=== PATIENT | female | born 1990 | race Caucasian/White ===

== ENCOUNTER 2018-03-23 17:07 | Emergency (ER) | payer OTHER ==
[2018-03-23] MEDS ORDERED: SODIUM CHLORIDE 0.9% 1,000 ML IV STA (17:34)
--- NOTE | 2018-03-23 17:36 | ED ---
Arrhythmia/Palpitations HPI - General Chief Complaint: Arrhythmia/Palpitations Stated Complaint: Weak/ dizzy /sob Time Seen by Provider: 03/23/18 17:34 Source: patient, RN notes reviewed, old records reviewed Mode of arrival: ambulatory Limitations: no limitations - History of Present Illness Initial Comments: This is a 19-year-old female the ER for evaluation of rapid heart rate. Patient feels like she recently had significantly heavy menstrual cycle with significant bleeding and has lightheadedness and dizziness with position changes. Patient denies any other significant complaints no headache chest pain shortness of breath or abdominal pain. MD Complaint: rapid heart beat, palpitations -: days(s) Context: occurred during exertion Associated Symptoms: near-syncope - Related Data Home Medications Medication Instructions Recorded Confirmed Ascorbic Acid [Vitamin C] 1,000 mg PO DAILY 03/23/18 03/23/18 Ferrous Sulfate [Feosol] 325 mg PO DAILY 03/23/18 03/23/18 Allergies Allergy/AdvReac Type Severity Reaction Status Date / Time Latex, Natural Rubber Allergy Rash/Hives Verified 03/23/18 17:47 Penicillins Allergy Rash/Hives Verified 03/23/18 17:47 Review of Systems ROS Statement: Those systems with pertinent positive or pertinent negative responses have been documented in the HPI. ROS Other: All systems not noted in ROS Statement are negative. Past Medical History Past Medical History: Hyperlipidemia Additional Past Medical History / Comment(s): family hx. colon cancer, intermittent rectal bleeding. PT STATES JUST GETTING OVER A "COLD"-SHE WILL NOTIFY DR Rica ROMERO'S OFFICE. History of Any Multi-Drug Resistant Organisms: None Reported Past Surgical History: Adenoidectomy, Cholecystectomy, Tonsillectomy Additional Past Surgical History / Comment(s): birthmark removed from chest Past Anesthesia/Blood Transfusion Reactions: No Reported Reaction Additional Past Anesthesia/Blood Transfusion Reaction / Comment(s): STATES SHE WOKE UP DURING 1 SURGERY. Past Psychological History: No Psychological Hx Reported Smoking Status: Never smoker Past Alcohol Use History: Occasional Past Drug Use History: None Reported - Past Family History Mother Family Medical History: No Reported History General Exam Limitations: no limitations General appearance: alert, in no apparent distress Head exam: Present: atraumatic, normocephalic, normal inspection Eye exam: Present: normal appearance, PERRL, EOMI. Absent: scleral icterus, conjunctival injection, periorbital swelling ENT exam: Present: normal exam, mucous membranes moist Neck exam: Present: normal inspection. Absent: tenderness, meningismus, lymphadenopathy Respiratory exam: Present: normal lung sounds bilaterally. Absent: respiratory distress, wheezes, rales, rhonchi, stridor Cardiovascular Exam: Present: normal rhythm, tachycardia, normal heart sounds. Absent: systolic murmur, diastolic murmur, rubs, gallop, clicks GI/Abdominal exam: Present: soft, normal bowel sounds. Absent: distended, tenderness, guarding, rebound, rigid Extremities exam: Present: normal inspection, full ROM, normal capillary refill. Absent: tenderness, pedal edema, joint swelling, calf tenderness Back exam: Present: normal inspection Neurological exam: Present: alert, oriented X3, CN II-XII intact Psychiatric exam: Present: normal affect, normal mood Skin exam: Present: warm, dry, intact, normal color. Absent: rash Course Vital Signs 03/23/18 03/23/18 03/23/18 17:27 18:11 21:25 Temperature 97.5 F L 98.9 F Pulse Rate 115 H 105 H Pulse Rate [ 104 H Registered Associate ] Respiratory 18 18 Rate Blood Pressure 175/99 142/70 O2 Sat by Pulse 100 Oximetry 03/23/18 03/23/18 03/23/18 21:35 22:05 23:09 Temperature Pulse Rate 102 H 110 H 103 H Pulse Rate [ Registered Associate ] Respiratory 17 17 17 Rate Blood Pressure 125/69 123/66 99/58 O2 Sat by Pulse 100 99 99 Oximetry - Reevaluation(s) Reevaluation #1: Medical record is reviewed Does not want stay in the hospital further, results and diagnosis is explained Medical Decision Making - Medical Decision Making 19 female the ER for evaluation she presents today for palpitations, patient has normal thyroid studies normal x-rays no drugs. Patient started so remains tachycardic currently but she remains without significant symptoms. Does feel better with some hydration and transfusion of blood. Patient denies any other significant drug or alcohol use. No chest - Lab Data Result diagrams: 03/23/18 18:30 03/23/18 18:30 Lab Results 03/23/18 03/23/18 03/23/18 Range/Units 18:30 18:30 18:30 WBC 16.5 H (3.8-10.6) k/uL RBC 2.62 L (3.80-5.40) m/uL Hgb 7.5 L (11.4-16.0) gm/dL Hct 22.5 L (34.0-46.0) % MCV 86.1 (80.0-100.0) fL MCH 28.7 (25.0-35.0) pg MCHC 33.3 (31.0-37.0) g/dL RDW 16.4 H (11.5-15.5) % Plt Count 365 (150-450) k/uL Neutrophils % 72 % Lymphocytes % 20 % Monocytes % 4 % Eosinophils % 3 % Basophils % 0 % Neutrophils # 11.9 H (1.3-7.7) k/uL Lymphocytes # 3.3 (1.0-4.8) k/uL Monocytes # 0.6 (0-1.0) k/uL Eosinophils # 0.4 (0-0.7) k/uL Basophils # 0.1 (0-0.2) k/uL Anisocytosis Slight PT (9.0-12.0) sec INR (<1.2) APTT (22.0-30.0) sec Sodium 138 (137-145) mmol/L Potassium 4.4 (3.5-5.1) mmol/L Chloride 104 (98-107) mmol/L Carbon Dioxide 27 (22-30) mmol/L Anion Gap 7 mmol/L BUN 12 (7-17) mg/dL Creatinine 0.83 (0.52-1.04) mg/dL Est GFR (CKD-EPI)AfAm >90 (>60 ml/min/1.73 sqM) Est GFR (CKD-EPI)NonAf >90 (>60 ml/min/1.73 sqM) Glucose 105 H (74-99) mg/dL Calcium 9.3 (8.4-10.2) mg/dL Magnesium 1.9 (1.6-2.3) mg/dL Total Bilirubin 0.5 (0.2-1.3) mg/dL AST 23 (14-36) U/L ALT 22 (9-52) U/L Alkaline Phosphatase 68 (38-126) U/L Total Creatine Kinase 27 L (30-135) U/L CK-MB (CK-2) <0.2 (0.0-2.4) ng/mL CK-MB (CK-2) Rel Index Troponin I <0.012 (0.000-0.034) ng/mL Total Protein 6.4 (6.3-8.2) g/dL Albumin 3.5 (3.5-5.0) g/dL Blood Type Blood Type Confirm Blood Type Recheck Antibody Screen Crossmatch Spec Expiration Date 03/23/18 03/23/18 03/23/18 Range/Units 18:30 18:30 20:07 WBC (3.8-10.6) k/uL RBC (3.80-5.40) m/uL Hgb (11.4-16.0) gm/dL Hct (34.0-46.0) % MCV (80.0-100.0) fL MCH (25.0-35.0) pg MCHC (31.0-37.0) g/dL RDW (11.5-15.5) % Plt Count (150-450) k/uL Neutrophils % % Lymphocytes % % Monocytes % % Eosinophils % % Basophils % % Neutrophils # (1.3-7.7) k/uL Lymphocytes # (1.0-4.8) k/uL Monocytes # (0-1.0) k/uL Eosinophils # (0-0.7) k/uL Basophils # (0-0.2) k/uL Anisocytosis PT 9.9 (9.0-12.0) sec INR 1.0 (<1.2) APTT 23.0 (22.0-30.0) sec Sodium (137-145) mmol/L Potassium (3.5-5.1) mmol/L Chloride (98-107) mmol/L Carbon Dioxide (22-30) mmol/L Anion Gap mmol/L BUN (7-17) mg/dL Creatinine (0.52-1.04) mg/dL Est GFR (CKD-EPI)AfAm (>60 ml/min/1.73 sqM) Est GFR (CKD-EPI)NonAf (>60 ml/min/1.73 sqM) Glucose (74-99) mg/dL Calcium (8.4-10.2) mg/dL Magnesium (1.6-2.3) mg/dL Total Bilirubin (0.2-1.3) mg/dL AST (14-36) U/L ALT (9-52) U/L Alkaline Phosphatase (38-126) U/L Total Creatine Kinase (30-135) U/L CK-MB (CK-2) (0.0-2.4) ng/mL CK-MB (CK-2) Rel Index Troponin I (0.000-0.034) ng/mL Total Protein (6.3-8.2) g/dL Albumin (3.5-5.0) g/dL Blood Type A Positive Blood Type Confirm A Positive Blood Type Recheck CABO Indicated Antibody Screen NEGATIVE Crossmatch See Detail Spec Expiration Date 03/26/20182 Disposition Clinical Impression: Anemia, Menorrhagia, Near syncope Disposition: HOME SELF-CARE Condition: Good Instructions: Iron Deficiency Anemia (ED), Anemia (ED) Is patient prescribed a controlled substance at d/c from ED?: No Referrals: Gray Pemberton MD [Primary Care Provider] - 1-2 days
[2018-03-23 18:49] LABS: Anisocytosis Slight; Basophils # (A) 0.1 k/uL (0-0.2); Basophils % (A) 0 %; Eosinophils # (A) 0.4 k/uL (0-0.7); Eosinophils % (A) 3 %; HCT 22.5 % (34.0-46.0); HGB 7.5 gm/dL (11.4-16.0); Lymphocytes # (A) 3.3 k/uL (1.0-4.8); Lymphocytes % (A) 20 %; MCH 28.7 pg (25.0-35.0); MCHC 33.3 g/dL (31.0-37.0); MCV 86.1 fL (80.0-100.0); Mean Platelet Volume 6.7; Monocytes # (A) 0.6 k/uL (0-1.0); Monocytes % (A) 4 %; Neutrophils # (A) 11.9 k/uL (1.3-7.7); Neutrophils % (A) 72 %; Platelet Count 365 k/uL (150-450); RBC 2.62 m/uL (3.80-5.40); RDW 16.4 % (11.5-15.5); WBC 16.5 k/uL (3.8-10.6)
[2018-03-23 18:53] LABS: Prothrombin Time 9.9 sec (9.0-12.0)
[2018-03-23 18:58] LABS: Creatine Kinase 27 U/L (30-135)
[2018-03-23 19:00] LABS: ALT 22 U/L (9-52); AST 23 U/L (14-36); Albumin 3.5 g/dL (3.5-5.0); Alkaline Phosphatase 68 U/L (38-126); Anion Gap 7 mmol/L; Blood Urea Nitrogen 12 mg/dL (7-17); Calcium 9.3 mg/dL (8.4-10.2); Carbon Dioxide 27 mmol/L (22-30); Chloride 104 mmol/L (98-107); Glucose 105 mg/dL (74-99); Magnesium 1.9 mg/dL (1.6-2.3); Potassium 4.4 mmol/L (3.5-5.1); Sodium 138 mmol/L (137-145); Total Bilirubin 0.5 mg/dL (0.2-1.3); Total Protein 6.4 g/dL (6.3-8.2)
[2018-03-23 19:11] LABS: Creatine Kinase MB <0.2 ng/mL (0.0-2.4); Troponin I <0.012 ng/mL (0.000-0.034)
[2018-03-23] MEDS ORDERED: LISINOPRIL 10 MG TAB PO STA (19:15)
[2018-03-23 21:27] VITALS: TEMP 98.9
[2018-03-23 22:18] VITALS: RESP 17
[2018-03-23 23:10] VITALS: BP 99/58; PULSE 103
== END 2018-03-23 23:23 | disposition home or self-care (01) ==
LOC: EC 17:07
DX: D64.9 Anemia, unspecified (principal); N92.0 Excessive and frequent menstruation with regular cycle; Z88.0 Allergy status to penicillin; Z91.040 Latex allergy status; Z79.899 Other long term (current) drug therapy
CPT/HCPCS: 99285; 96360; 36415; 86900; 86901; 80053; 82550; 82553; 83735; 84484; 85025; 85610; 85730; 86850; 86920; P9016

== ENCOUNTER 2022-05-21 09:22 | Emergency (ER) | payer OTHER ==
[2022-05-21 09:35] VITALS: TEMP 98
--- NOTE | 2022-05-21 10:10 | ED ---
General Adult HPI - General Chief complaint: Vaginal Bleeding Stated complaint: 8-9 weeks preg, Vaginal Bleeding Time Seen by Provider: 05/21/22 09:40 Source: patient, RN notes reviewed Mode of arrival: ambulatory Limitations: no limitations - History of Present Illness Initial comments: 31-year-old female presents emergency Department chief complaint of vaginal bleeding early . Patient states that she was not sure if she was she states she's been spotting for a while but had a little increasing bleeding this morning. She states that she is scheduled for lab and ultrasound at [facility] on . Patient states that she took multiple tests at home which were positive. Patient is A0 has not sc heduled [employer] appointment. She has no lower abdominal pain. Patient does have a history of anemia. - Related Data Home Medications Medication Instructions Recorded Confirmed Ascorbic Acid [Vitamin C] 1,000 mg PO DAILY 03/23/18 03/23/18 Ferrous Sulfate [Feosol] 325 mg PO DAILY 03/23/18 03/23/18 Allergies Allergy/AdvReac Type Severity Reaction Status Date / Time Latex, Natural Rubber Allergy Rash/Hives Verified 05/21/22 09:34 Penicillins Allergy Rash/Hives Verified 05/21/22 09:34 Review of Systems ROS Statement: Those systems with pertinent positive or pertinent negative responses have been documented in the HPI. ROS Other: All systems not noted in ROS Statement are negative. Past Medical History Past Medical History: Hyperlipidemia Additional Past Medical History / Comment(s): family hx. colon cancer, intermittent rectal bleeding. PT STATES JUST GETTING OVER A "COLD"-SHE WILL NOTIFY DR Rica ROMERO'S OFFICE. History of Any Multi-Drug Resistant Organisms: None Reported Past Surgical History: Adenoidectomy, Cholecystectomy, Tonsillectomy Additional Past Surgical History / Comment(s): birthmark removed from chest Past Anesthesia/Blood Transfusion Reactions: No Reported Reaction Additional Past Anesthesia/Blood Transfusion Reaction / Comment(s): STATES SHE WOKE UP DURING 1 SURGERY. Past Psychological History: No Psychological Hx Reported Smoking Status: Never smoker Past Alcohol Use History: Occasional Past Drug Use History: None Reported - Past Family History Mother Family Medical History: No Reported History General Exam Limitations: no limitations General appearance: alert, in no apparent distress Head exam: Present: atraumatic, normocephalic, normal inspection Eye exam: Present: normal appearance, PERRL, EOMI. Absent: scleral icterus, conjunctival injection, periorbital swelling Neck exam: Present: normal inspection, full ROM. Absent: tenderness, meningismus, lymphadenopathy Respiratory exam: Present: normal lung sounds bilaterally. Absent: respiratory distress, wheezes, rales, rhonchi, stridor Cardiovascular Exam: Present: regular rate, normal rhythm, normal heart sounds. Absent: systolic murmur, diastolic murmur, rubs, gallop, clicks GI/Abdominal exam: Present: soft, normal bowel sounds. Absent: distended, tenderness, guarding, rebound, rigid Course Vital Signs 05/21/22 09:31 Temperature 98 F Pulse Rate 101 H Respiratory 20 Rate Blood Pressure 137/95 O2 Sat by Pulse 98 Oximetry Medical Decision Making - Medical Decision Making Was pt. sent in by a medical professional or institution? @ -non Did you speak to anyone other than the patient for history? @ no Did you review nursing and triage notes? @ -agree and reviewed Were old charts reviewed? @ -no Differential Diagnosis? @ -Miscarriage, , menorrhagia, dysmenorrhea, ovarian cysts, this list is not meant to be all inclusive EKG interpreted by me (3pts min.)? @ -no X-rays interpreted by me (1pt min.)? @ -no CT interpreted by me (1pt min.)? @ -no U/S interpreted by me (1pt. min.)? @ -Ultrasound shows 9 week intrauterine with subchorionic hemorrhage as interpreted by me What testing was considered but not performed? (CT, X-rays, U/S, labs)? Why? @ no What meds were considered but not given? Why? @ -no Did you discuss the management of the patient with other professionals? @ -no Did you reconcile home meds? @ -no Was smoking cessation discussed for >3mins.? @ -non Was critical care preformed (if so, how long)? @ no Were there social determinants of health that impacted care today? How? (Homelessness, low income, unemployed, alcoholism, drug addiction, t ransportation, low edu. Level, literacy, decrease access to med. care, [facility], rehab)? @ -no Was there de-escalation of care discussed even if they declined? (Discuss DNR or withdrawal of care, Hospice)? @ -no What co-morbidities impacted this encounter? (DM, HTN, Smoking, COPD, CAD, Cancer, CVA, Hep., AIDS, mental health diagnosis, sleep apnea, morbid obesity)? @ -no Was patient admitted / discharged? @ -discharged Undiagnosed new problem with uncertain prognosis? @ -no Drug Therapy requiring intensive monitoring for toxicity (Heparin, Nitro, Insulin, Cardizem)? @ -no Were any procedures done? @ -no Diagnosis/symptom? @ - Acute, or Chronic, or Acute on Chronic? @ -acute Uncomplicated (without systemic symptoms) or Complicated (systemic symptoms)? @ -Uncomplicated Side effects of treatment? @ -no Exacerbation, Progression, or Severe Exacerbation] @ -no Poses a threat to life or bodily function? @ -no Diagnosis/symptom? @ -Subchorionic hemorrhage Acute, or Chronic, or Acute on Chronic? @ -acute Uncomplicated (without systemic symptoms) or Complicated (systemic symptoms)? @ -Uncomplicated Side effects of treatment? @ -none Exacerbation, Progression, or Severe Exacerbation] @ -non Poses a threat to life or bodily function? @ no - Lab Data Result diagrams: 05/21/22 09:48 Lab Results 05/21/22 05/21/22 05/21/22 Range/Units 09:48 09:48 09:48 WBC 14.8 H (3.8-10.6) k/uL RBC 5.20 (3.80-5.40) m/uL Hgb 14.9 (11.4-16.0) gm/dL Hct 43.5 (34.0-46.0) % MCV 83.8 (80.0-100.0) fL MCH 28.6 (25.0-35.0) pg MCHC 34.2 (31.0-37.0) g/dL RDW 14.0 (11.5-15.5) % Plt Count 264 (150-450) k/uL MPV 8.1 Neutrophils % 85 % Lymphocytes % 10 % Monocytes % 3 % Eosinophils % 0 % Basophils % 0 % Neutrophils # 12.6 H (1.3-7.7) k/uL Lymphocytes # 1.5 (1.0-4.8) k/uL Monocytes # 0.5 (0-1.0) k/uL Eosinophils # 0.1 (0-0.7) k/uL Basophils # 0.1 (0-0.2) k/uL HCG, Quant 58982.9 mIU/mL Urine Color Colorless Urine Appearance Clear (Clear) Urine pH 6.0 (5.0-8.0) Ur Specific [place] 1.003 (1.001-1.035) Urine Protein Negative (Negative) Urine Glucose (UA) Negative (Negative) Urine Ketones Negative (Negative) Urine Blood Large H (Negative) Urine Nitrite Negative (Negative) Urine Bilirubin Negative (Negative) Urine Urobilinogen <2.0 (<2.0) mg/dL Ur Leukocyte Esterase Trace H (Negative) Urine RBC 3 (0-5) /hpf Urine WBC 2 (0-5) /hpf Ur Squamous Epith Cells <1 (0-4) /hpf Urine Bacteria Rare H (None) /hpf Urine Mucus Rare H (None) /hpf Disposition Clinical Impression: , Subchorionic hemorrhage Disposition: HOME SELF-CARE Condition: Stable Instructions (If sedation given, give patient instructions): Subchorionic Hemorrhage (ED) Additional Instructions: Please return to the Emergency Department if symptoms worsen or any other concerns. Is patient prescribed a controlled substance at d/c from ED?: No Referrals: Gray Pemberton MD [Primary Care Provider] - 1-2 days Time of Disposition: 11:17
[2022-05-21 10:17] LABS: Basophils # (A) 0.1 k/uL (0-0.2); Basophils % (A) 0 %; Eosinophils # (A) 0.1 k/uL (0-0.7); Eosinophils % (A) 0 %; HCT 43.5 % (34.0-46.0); HGB 14.9 gm/dL (11.4-16.0); Lymphocytes # (A) 1.5 k/uL (1.0-4.8); Lymphocytes % (A) 10 %; MCH 28.6 pg (25.0-35.0); MCHC 34.2 g/dL (31.0-37.0); MCV 83.8 fL (80.0-100.0); Mean Platelet Volume 8.1; Monocytes # (A) 0.5 k/uL (0-1.0); Monocytes % (A) 3 %; Neutrophils # (A) 12.6 k/uL (1.3-7.7); Neutrophils % (A) 85 %; Platelet Count 264 k/uL (150-450); WBC 14.8 k/uL (3.8-10.6)
[2022-05-21 10:21] LABS: Appearance,Urine Clear (Clear); Bacteria,Urine Rare /hpf; Bilirubin,Urine Negative (Negative); Blood,Urine Large (Negative); Color,Urine Colorless; Glucose,Urine (UA) Negative (Negative); Ketones,Urine Negative (Negative); Leukocyte Esterase,Urine Trace (Negative); Mucus,Urine Rare /hpf; Nitrite,Urine Negative (Negative); Protein,Urine Negative (Negative); RBC,Urine 3 /hpf (0-5); Specific Gravity,Urine 1.003 (1.001-1.035); Squamous Epithelial Cell,Urine <1 /hpf (0-4); Urobilinogen,Urine <2.0 mg/dL (<2.0); WBC,Urine 2 /hpf (0-5)
--- NOTE | 2022-05-21 10:46 | US ---
EXAMINATION TYPE: Transabdominal DATE OF EXAM: 05/21/2022 10:29 AM COMPARISON: NONE CLINICAL HISTORY: pain, bleeding. , spotting for weeks, now clots, rlq pain, irregular cycles, PC OS EXAM PERFORMED: OBTA EXAM MEASUREMENTS: GESTATIONAL AGE / DATING Physician Established: Not yet established Dates by LMP: LMP unknown Dates by First Scan: No previous this is first scan Dates by Current Scan for: (9 weeks/0 days) EDC: 12/24/2022 MATERNAL ANATOMY Uterus: 12.2 x 10.2 x 6.4cm Right Ovary: 6.3 x 4.2 x 3.1cm Left Ovary: 2.3 x 2.2 x 2.5cm Post CDS / Adnexa: wnl Presence of free fluid: no Presence of corpus luteal cyst: yes, right ovary = 4.4cm Presence of subchorionic bleed: yes, 4.1 x 2.2 x 1.2cm to the right of gestational sac GESTATION / SURVEY CRL: 2.2cm (9 weeks/0 days) MSD: wnl Yolk Sac (normal less than 6mm): 0.3cm Heart Rate: 170 bpm Rhythm: Normal IUP: Viable IUP Date of LMP: unknown Beta HcG (if available): pending IMPRESSION: Viable 9 weeks 0 days with a heart rate of 170 bpm. There is a subchorionic hemorrhage blaire uring 4.1 x 2.2 cm.
[2022-05-21 11:46] VITALS: BP 122/67; PULSE 70; RESP 18
== END 2022-05-21 11:46 | disposition home or self-care (01) ==
LOC: EC 09:22
DX: O20.8 Other hemorrhage in early pregnancy (principal); Z3A.09 9 weeks gestation of pregnancy; Z88.0 Allergy status to penicillin; Z91.040 Latex allergy status
CPT/HCPCS: 36415; 76801; 81001; 84702; 85025; 99284

== ENCOUNTER 2022-06-02 19:57 | Emergency (ER) | payer OTHER ==
[2022-06-02 20:03] VITALS: PULSE 94; RESP 18; TEMP 98.3
[2022-06-02] MEDS ORDERED: ONDANSETRON 4 MG/2 ML VIAL IVP STA (20:18)
[2022-06-02] MEDS ORDERED: ACETAMINOPHEN TAB 325 MG TAB PO STA (20:18)
[2022-06-02] MEDS ORDERED: SODIUM CHLORIDE 0.9% 1,000 ML IV ONE (20:18)
--- NOTE | 2022-06-02 20:24 | ED ---
General Adult HPI - General Chief complaint: Vaginal Bleeding Stated complaint: 10 wks pg with cramping Time Seen by Provider: 06/02/22 20:06 Source: patient Mode of arrival: ambulatory Limitations: no limitations - History of Present Illness Initial comments: Patient is a 31-year-old female currently about 10 weeks presenting with chief complaint of cramping and spotting. Patient states that symptoms started last night. She would notice very small amounts of bright red blood when she would wipe. Today she was noticing dark brown clots which prompted her to present for evaluation. Patient states she is currently following with Dr. Ovalles. She admits to nausea, no vomiting. No chest pain or difficulty breathing. No headache or vision or hearing changes. No dizziness or syncope. - Related Data Home Medications Medication Instructions Recorded Confirmed Ferrous Sulfate [Feosol] 325 mg PO Q3D 06/02/22 06/02/22 [id number] Acid 1 cap PO DAILY 06/02/22 06/02/22 [-U Capsule (formulary)] Allergies Allergy/AdvReac Type Severity Reaction Status Date / Time Latex, Natural Rubber Allergy Rash/Hives Verified 06/02/22 20:55 at contact site Penicillins Allergy Hives all Verified 06/02/22 20:55 over body Review of Systems ROS Statement: Those systems with pertinent positive or pertinent negative responses have been documented in the HPI. ROS Other: All systems not noted in ROS Statement are negative. Past Medical History Past Medical History: Hyperlipidemia Additional Past Medical History / Comment(s): family hx. colon cancer, intermittent rectal bleeding. PT STATES JUST GETTING OVER A "COLD"-SHE WILL NOTIFY DR Rica ROMERO'S OFFICE. History of Any Multi-Drug Resistant Organisms: None Reported Past Surgical History: Adenoidectomy, Cholecystectomy, Tonsillectomy Additional Past Surgical History / Comment(s): birthmark removed from chest Past Anesthesia/Blood Transfusion Reactions: No Reported Reaction Additional Past Anesthesia/Blood Transfusion Reaction / Comment(s): STATES SHE WOKE UP DURING 1 SURGERY. Past Psychological History: No Psychological Hx Reported Smoking Status: Never smoker Past Alcohol Use History: Occasional Past Drug Use History: None Reported - Past Family History Mother Family Medical History: No Reported History General Exam Limitations: no limitations General appearance: alert, in no apparent distress Head exam: Present: atraumatic, normocephalic, normal inspection Eye exam: Present: normal appearance Neck exam: Present: normal inspection Respiratory exam: Present: normal lung sounds bilaterally. Absent: respiratory distress, wheezes, rales, rhonchi, stridor Cardiovascular Exam: Present: regular rate, normal rhythm, normal heart sounds. Absent: systolic murmur, diastolic murmur, rubs, gallop, clicks Neurological exam: Present: alert, oriented X3, CN II-XII intact Psychiatric exam: Present: normal affect, normal mood Skin exam: Present: warm, dry, intact, normal color. Absent: rash Course Vital Signs 06/02/22 06/02/22 19:59 21:46 Temperature 98.3 F Pulse Rate 94 Respiratory 18 Rate Blood Pressure 140/95 120/79 O2 Sat by Pulse 100 Oximetry Medical Decision Making - Medical Decision Making Was pt. sent in by a medical professional or institution ([employer] [facility], [employer], urgent care, hospital, or fdc...) When possible be specific @ -No Did you speak to anyone other than the patient for history (EMS, parent, family, police, friend...)? What history was obtained from this source @ -No Did you review nursing and triage notes (agree or disagree)? Why? @ -I reviewed and agree with nursing and triage notes Were old charts reviewed (outside hosp., previous admission, EMS record, old EKG, old radiological studies, urgent care reports/EKG's, fdc records)? Report findings @ -Previous visits reviewed Differential Diagnosis (chest pain, altered mental status, abdominal pain women, abdominal pain men, vaginal bleeding, weakness, fever, dyspnea, syncope, heada yuli, dizziness, GI bleed, back pain, seizure, CVA, palpatations, mental health)? @ -[facility] Differential Vaginal Bleeding: Spontaneous , threatened , molar , ectopic , bloody show, incompetent cervix, abruptioplacenta, placenta previa, uterine rupture, dysfunctional uterine bleeding, hemorrhage, uterine fibroids. ... This is not meant to be an all-inclusive list EKG interpreted by me (3pts min.). @ -As above X-rays interpreted by me (1pt min.). @ -None done CT interpreted by me (1pt min.). @ -None done U/S interpreted by me (1pt. min.). @ -, Radiologist report is reviewed. Ultrasound gestational age is 10 weeks and 4 days. feeding process seen. Heart rate 179 bpm. Subchorionic bleed 1.7 x 1.2 x 1.2 cm What testing was considered but not performed or refused? (CT, X-rays, U/S, labs)? Why? @ -None What meds were considered but not given or refused? Why? @ -None Did you discuss the management of the patient with other professionals (professionals i.e. , PA, [employer], lab, RT, psych nurse, socially responsible investment adviser, communications associate, teacher, chief talent officer, caser in)? Give summary @ -No Was smoking cessation discussed for >3mins.? @ -No Was critical care preformed (if so, how long)? @ -No Were there social determinants of health that impacted care today? How? (Homelessness, low income, unemployed, alcoholism, drug addiction, transportation, low edu. Level, literacy, decrease access to med. care, snf, rehab)? @ -No Was there de-escalation of care discussed even if they declined (Discuss DNR or withdrawal of care, Hospice)? DNR status @ -No What co-morbidities impacted this encounter? (DM, HTN, Smoking, COPD, CAD, Cancer, CVA, ARF, Chemo, Hep., AIDS, mental health diagnosis, sleep apnea, morbid obesity)? @ - Was patient admitted / discharged? Hospital course, mention meds given and route, prescriptions, significant lab abnormalities, going to OR and other pertinent info. @ -Patient is a 31-year-old female currently about 10 weeks presenting with chief complaint of cramping and vaginal bleeding that started yesterday. Physical examination is unremarkable. Lab work shows WBC 14.4, likely result of . Hemoglobin 14.5. HCG quantitative 80704.6 urine shows no signs of infectious process. Previous records show she is blood type A+. ultrasound shows no complicating process. Patient is educated on threatened miscarriage. Instructed to follow-up with her ASW/ASUW TACTICAL AIR CONTROLLER. May take Tylenol as needed for pain control. Rest and stay well hydrated. Discharged home. Follow- up with PCP. Report back to ER with any new or worsening symptoms. Discussed return parameters and answered all questions. Patient conveyed verbal understanding and agreed to the plan. I discussed this case in detail with my attending Dr. Jang Undiagnosed new problem with uncertain prognosis? @ -No Drug Therapy requiring intensive monitoring for toxicity (Heparin, Nitro, Insulin, Cardizem)? @ -No Were any procedures done? @ -No Diagnosis/symptom? @ -Threatened miscarriage Acute, or Chronic, or Acute on Chronic? @ -acute Uncomplicated (without systemic symptoms) or Complicated (systemic symptoms)? @ -Uncomplicated Side effects of treatment? @ -No Exacerbation, Progression, or Severe Exacerbation? @ -No Poses a threat to life or bodily function? How? (Chest pain, [place], [place], pneumonia, PE, COPD, DKA, ARF, appy, cholecystitis, CVA, Diverticulitis, Homicidal, Suicidal, threat to staff... and all critical care pts) @ -No - Lab Data Result diagrams: 06/02/22 20:41 06/02/22 20:41 Lab Results 06/02/22 06/02/22 06/02/22 Range/Units 20:41 20:41 20:41 WBC 14.4 H (3.8-10.6) k/uL RBC 5.21 (3.80-5.40) m/uL Hgb 14.5 (11.4-16.0) gm/dL Hct 42.4 (34.0-46.0) % MCV 81.4 (80.0-100.0) fL MCH 27.8 (25.0-35.0) pg MCHC 34.2 (31.0-37.0) g/dL RDW 14.1 (11.5-15.5) % Plt Count 262 (150-450) k/uL MPV 7.8 Neutrophils % 78 % Lymphocytes % 16 % Monocytes % 3 % Eosinophils % 2 % Basophils % 0 % Neutrophils # 11.2 H (1.3-7.7) k/uL Lymphocytes # 2.3 (1.0-4.8) k/uL Monocytes # 0.5 (0-1.0) k/uL Eosinophils # 0.2 (0-0.7) k/uL Basophils # 0.1 (0-0.2) k/uL PT 10.7 (9.0-12.0) sec INR 1.0 (<1.2) APTT 22.2 (22.0-30.0) sec Sodium (137-145) mmol/L Potassium (3.5-5.1) mmol/L Chloride (98-107) mmol/L Carbon Dioxide (22-30) mmol/L Anion Gap mmol/L BUN (7-17) mg/dL Creatinine (0.52-1.04) mg/dL Est GFR (CKD-EPI)AfAm (>60 ml/min/1.73 sqM) Est GFR (CKD-EPI)NonAf (>60 ml/min/1.73 sqM) Glucose (74-99) mg/dL Calcium (8.4-10.2) mg/dL Total Bilirubin (0.2-1.3) mg/dL AST (14-36) U/L ALT (4-34) U/L Alkaline Phosphatase (38-126) U/L Total Protein (6.3-8.2) g/dL Albumin (3.5-5.0) g/dL HCG, Quant mIU/mL Urine Color Yellow Urine Appearance Clear (Clear) Urine pH 6.0 (5.0-8.0) Ur Specific [place] 1.018 (1.001-1.035) Urine Protein Negative (Negative) Urine Glucose (UA) Negative (Negative) Urine Ketones Trace H (Negative) Urine Blood Small H (Negative) Urine Nitrite Negative (Negative) Urine Bilirubin Negative (Negative) Urine Urobilinogen 3.0 (<2.0) mg/dL Ur Leukocyte Esterase Small H (Negative) Urine RBC 1 (0-5) /hpf Urine WBC 5 (0-5) /hpf Ur Squamous Epith Cells 1 (0-4) /hpf Urine Bacteria Occasional H (None) /hpf Urine Mucus Rare H (None) /hpf 06/02/22 Range/Units 20:41 WBC (3.8-10.6) k/uL RBC (3.80-5.40) m/uL Hgb (11.4-16.0) gm/dL Hct (34.0-46.0) % MCV (80.0-100.0) fL MCH (25.0-35.0) pg MCHC (31.0-37.0) g/dL RDW (11.5-15.5) % Plt Count (150-450) k/uL MPV Neutrophils % % Lymphocytes % % Monocytes % % Eosinophils % % Basophils % % Neutrophils # (1.3-7.7) k/uL Lymphocytes # (1.0-4.8) k/uL Monocytes # (0-1.0) k/uL Eosinophils # (0-0.7) k/uL Basophils # (0-0.2) k/uL PT (9.0-12.0) sec INR (<1.2) APTT (22.0-30.0) sec Sodium 136 L (137-145) mmol/L Potassium 3.9 (3.5-5.1) mmol/L Chloride 107 (98-107) mmol/L Carbon Dioxide 22 (22-30) mmol/L Anion Gap 7 mmol/L BUN 9 (7-17) mg/dL Creatinine 0.68 (0.52-1.04) mg/dL Est GFR (CKD-EPI)AfAm >90 (>60 ml/min/1.73 sqM) Est GFR (CKD-EPI)NonAf >90 (>60 ml/min/1.73 sqM) Glucose 93 (74-99) mg/dL Calcium 9.6 (8.4-10.2) mg/dL Total Bilirubin 0.8 (0.2-1.3) mg/dL AST 29 (14-36) U/L ALT 40 H (4-34) U/L Alkaline Phosphatase 54 (38-126) U/L Total Protein 6.9 (6.3-8.2) g/dL Albumin 4.1 (3.5-5.0) g/dL HCG, Quant 70840.6 mIU/mL Urine Color Urine Appearance (Clear) Urine pH (5.0-8.0) Ur Specific [place] (1.001-1.035) Urine Protein (Negative) Urine Glucose (UA) (Negative) Urine Ketones (Negative) Urine Blood (Negative) Urine Nitrite (Negative) Urine Bilirubin (Negative) Urine Urobilinogen (<2.0) mg/dL Ur Leukocyte Esterase (Negative) Urine RBC (0-5) /hpf Urine WBC (0-5) /hpf Ur Squamous Epith Cells (0-4) /hpf Urine Bacteria (None) /hpf Urine Mucus (None) /hpf Disposition Clinical Impression: Threatened Disposition: HOME SELF-CARE Condition: Good Instructions (If sedation given, give patient instructions): Threatened Miscarriage (ED) Additional Instructions: Follow up with ASW/ASUW TACTICAL AIR CONTROLLER. Report back to ER with any new or worsening symptoms. Take Tylenol as needed for pain control. Is patient prescribed a controlled substance at d/c from ED?: No Referrals: Gray Pemberton MD [Primary Care Provider] - 1-2 days Guillermo Dent MD [STAFF PHYSICIAN] - 1-2 days Time of Disposition: 22:04
[2022-06-02 21:01] LABS: Basophils # (A) 0.1 k/uL (0-0.2); Basophils % (A) 0 %; Eosinophils # (A) 0.2 k/uL (0-0.7); Eosinophils % (A) 2 %; HCT 42.4 % (34.0-46.0); HGB 14.5 gm/dL (11.4-16.0); Lymphocytes # (A) 2.3 k/uL (1.0-4.8); Lymphocytes % (A) 16 %; MCH 27.8 pg (25.0-35.0); MCHC 34.2 g/dL (31.0-37.0); MCV 81.4 fL (80.0-100.0); Mean Platelet Volume 7.8; Monocytes # (A) 0.5 k/uL (0-1.0); Monocytes % (A) 3 %; Neutrophils # (A) 11.2 k/uL (1.3-7.7); Neutrophils % (A) 78 %; Platelet Count 262 k/uL (150-450); RBC 5.21 m/uL (3.80-5.40); RDW 14.1 % (11.5-15.5); WBC 14.4 k/uL (3.8-10.6)
[2022-06-02 21:19] LABS: ALT 40 U/L (4-34); AST 29 U/L (14-36); African American GFR (CKD) >90 (>60 ml/min/1.73 sqM); Albumin 4.1 g/dL (3.5-5.0); Alkaline Phosphatase 54 U/L (38-126); Anion Gap 7 mmol/L; Blood Urea Nitrogen 9 mg/dL (7-17); Calcium 9.6 mg/dL (8.4-10.2); Carbon Dioxide 22 mmol/L (22-30); Chloride 107 mmol/L (98-107); Glucose 93 mg/dL (74-99); Non-African American GFR(CKD) >90 (>60 ml/min/1.73 sqM); Potassium 3.9 mmol/L (3.5-5.1); Sodium 136 mmol/L (137-145); Total Bilirubin 0.8 mg/dL (0.2-1.3); Total Protein 6.9 g/dL (6.3-8.2)
[2022-06-02 21:34] LABS: Partial Thromboplastin Time 22.2 sec (22.0-30.0); Prothrombin Time 10.7 sec (9.0-12.0)
[2022-06-02 21:39] LABS: Appearance,Urine Clear (Clear); Bacteria,Urine Occasional /hpf; Bilirubin,Urine Negative (Negative); Blood,Urine Small (Negative); Color,Urine Yellow; Glucose,Urine (UA) Negative (Negative); Ketones,Urine Trace (Negative); Leukocyte Esterase,Urine Small (Negative); Mucus,Urine Rare /hpf; Nitrite,Urine Negative (Negative); Protein,Urine Negative (Negative); RBC,Urine 1 /hpf (0-5); Specific Gravity,Urine 1.018 (1.001-1.035); Squamous Epithelial Cell,Urine 1 /hpf (0-4); WBC,Urine 5 /hpf (0-5)
[2022-06-02 21:46] VITALS: BP 120/79
--- NOTE | 2022-06-02 21:51 | US ---
EXAMINATION TYPE: Transabdominal DATE OF EXAM: 06/02/2022 9:25 PM COMPARISON: NONE CLINICAL HISTORY: pain. EXAM PERFORMED: EXAM MEASUREMENTS: GESTATIONAL AGE / DATING Physician Established: Not yet Dates by LMP: LMP unknown Dates by First Scan: (10 weeks/5 days) EDC: 12-24-2022 Dates by Current Scan for: (10 weeks/4 days) EDC: 12-25-2022 MATERNAL ANATOMY Patient of large body habitus. Uterus: 10.9 x 7.7 x 8.3cm Right Ovary: 4.4 x 3.1 x 2.3cm Left Ovary: 1.9 x 2.1 x 1.9cm Post CDS / Adnexa: wnl Presence of cyst may represent corpus luteal cyst:3.7 x 2.4 x 2.1cm Presence of subchorionic bleed: 1.7 x 1.2 x 1.2cm GESTATION / SURVEY CRL: 3.7cm (10 weeks/4 days) Yolk Sac (normal less than 6mm): not visualized on today's study Heart Rate: 179 bpm Rhythm: Normal IUP: Viable IUP Date of LMP: unknown Beta HcG (if available): Not available at this time IMPRESSION: The ultrasound gestational age is 10 weeks and 4 days. No complicating process seen.
[2022-06-02 22:33] LABS: HCG,Quantitative Serum 70430.6 mIU/mL
== END 2022-06-02 22:12 | disposition home or self-care (01) ==
LOC: EC 19:57
DX: O20.0 Threatened abortion (principal); O99.281 Endocrine, nutritional and metabolic diseases complicating pregnancy, first trimester; O99.711 Diseases of the skin and subcutaneous tissue complicating pregnancy, first trimester; E78.5 Hyperlipidemia, unspecified; Z88.0 Allergy status to penicillin; Z3A.10 10 weeks gestation of pregnancy
CPT/HCPCS: 36415; 80053; 85025; 85610; 85730; 81001; 84702; 76801; 99284; 96374; 96361; J2405

== ENCOUNTER 2022-06-15 19:18 | Emergency (ER) | payer OTHER ==
[2022-06-15] MEDS ORDERED: SODIUM CHLORIDE 0.9% 500 ML 500 ML IV STA (20:42)
--- NOTE | 2022-06-15 20:52 | ED ---
Abdominal Pain HPI - General Chief Complaint: Abdominal Pain Stated Complaint: 12 weeks preg/bleeding Time Seen by Provider: 06/15/22 20:42 Source: patient, RN notes reviewed, old records reviewed Mode of arrival: EMS - History of Present Illness Initial Comments: Well-appearing 31-year-old female presents to the emergency room with vaginal bleeding. She is 12 weeks started having abdominal pain cramping and bleeding around 6:30. She passed a large clot the size of her palm at 6:45. She did call her BEEF BREAKER recommended to come to the emergency room. She was told that she had a subchorionic hemorrhage on previous ultrasound. MD Complaint: abdominal pain -: hour(s) (2) Location: RUQ, RLQ Severity scale (1-10): 7 Quality: cramping Consistency: constant Improves With: nothing Associated Symptoms: other (vaginal bleeding) - Related Data Patient : Yes Number of weeks : 12 Home Medications Medication Instructions Recorded Confirmed Ferrous Sulfate [Feosol] 325 mg PO Q3D 06/02/22 06/15/22 [id number]-[id number] Acid 1 cap PO DAILY 06/02/22 06/15/22 [-U Capsule (formulary)] Allergies Allergy/AdvReac Type Severity Reaction Status Date / Time Latex, Natural Rubber Allergy Rash/Hives Verified 06/15/22 21:51 at contact site Penicillins Allergy Hives all Verified 06/15/22 21:51 over body Review of Systems ROS Statement: Those systems with pertinent positive or pertinent negative responses have been documented in the HPI. ROS Other: All systems not noted in ROS Statement are negative. Past Medical History Past Medical History: Hyperlipidemia Additional Past Medical History / Comment(s): family hx. colon cancer, intermittent rectal bleeding. PT STATES JUST GETTING OVER A "COLD"-SHE WILL NOTIFY DR Rica ROMERO'S OFFICE. History of Any Multi-Drug Resistant Organisms: None Reported Past Surgical History: Adenoidectomy, Cholecystectomy, Tonsillectomy Additional Past Surgical History / Comment(s): birthmark removed from chest Past Anesthesia/Blood Transfusion Reactions: No Reported Reaction Additional Past Anesthesia/Blood Transfusion Reaction / Comment(s): STATES SHE WOKE UP DURING 1 SURGERY. Past Psychological History: No Psychological Hx Reported Smoking Status: Never smoker Past Alcohol Use History: Occasional Past Drug Use History: None Reported - Past Family History Mother Family Medical History: No Reported History General Exam Limitations: no limitations General appearance: alert, in no apparent distress Head exam: Present: atraumatic Eye exam: Present: normal appearance. Absent: scleral icterus, conjunctival injection, periorbital swelling Neck exam: Absent: tenderness, meningismus Respiratory exam: Present: normal lung sounds bilaterally. Absent: respiratory distress, accessory muscle use Cardiovascular Exam: Present: regular rate GI/Abdominal exam: Present: soft, tenderness (Right upper and right lower). Absent: distended, guarding, rebound, rigid Extremities exam: Present: normal capillary refill Neurological exam: Present: alert, oriented X3 Psychiatric exam: Present: normal affect, normal mood Skin exam: Present: warm, dry, normal color. Absent: cyanosis, diaphoretic, pallor Course Vital Signs 06/15/22 06/15/22 06/15/22 19:43 21:14 22:46 Temperature 98.0 F 98.2 F Pulse Rate 88 79 84 Respiratory 16 20 18 Rate Blood Pressure 139/86 130/95 130/90 O2 Sat by Pulse 98 100 100 Oximetry Medical Decision Making - Medical Decision Making Ultrasound shows a single live intrauterine gestation with ultrasound age of 12 weeks 4 days, tiny subchorionic hemorrhage, heart rate 146. Beta quant 24715.3, hemoglobin and hematocrit is stable. There is evidence of leukocytosis . Her previous labs drawn 2 weeks ago showed white count 14.4 Denies any chest pain or shortness of breath or dizziness at this time. Patient states she does have an appointment on Friday with her software sales consultant. Is currently on bedrest and pelvic rest. Directed to continue this practice and keep her follow-up appointment. Return to the emergency room with any new or concerning symptoms including increased bleeding, pain, fevers, dizziness or shortness of breath. She is agreeable to this plan of care. Case discussed with Dr. Pabon Was pt. sent in by a medical professional or institution? @ -no Did you speak to anyone other than the patient for history? @ -no Did you review nursing and triage notes? @ -yes i agree Were old charts reviewed? @ -previous labs Differential Diagnosis? @ -Ectopic , completed , incomplete , threatened , subchorionic hemorrhage EKG interpreted by me (3pts min.)? @ -[none] X-rays interpreted by me (1pt min.)? @ -[none] CT interpreted by me (1pt min.)? @ -[none] U/S interpreted by me (1pt. min.)? @ no What testing was considered but not performed? (CT, X-rays, U/S, labs)? Why? @ none What meds were considered but not given? Why? @ -RhoGAM was considered however patient's blood type is A+ Did you discuss the management of the patient with other professionals? @ -no Did you reconcile home meds? @ -no Was smoking cessation discussed for >3mins.? @ -no Was critical care preformed (if so, how long)? @ -no Were there social determinants of health that impacted care today? How? (Homelessness, low income, unemployed, alcoholism, drug addiction, transportation, low edu. Level, literacy, decrease access to med. care, longterm, rehab)? @ -none Was there de-escalation of care discussed even if they declined? (Discuss DNR or withdrawal of care, Hospice)? @ -no What co-morbidities impacted this encounter? (DM, HTN, Smoking, COPD, CAD, Cancer, CVA, Hep., AIDS, mental health diagnosis, sleep apnea, morbid obesity)? @ -Obesity Was patient admitted / discharged? @ -Discharged Undiagnosed new problem with uncertain prognosis? @ -[none] Drug Therapy requiring intensive monitoring for toxicity (Heparin, Nitro, Insulin, Cardizem)? @ -No Were any procedures done? @ -no Diagnosis/symptom? @ -Subchorionic hemorrhage, threatened Acute, or Chronic, or Acute on Chronic? @ -acute Uncomplicated (without systemic symptoms) or Complicated (systemic symptoms)? @ -complicated Side effects of treatment? @ -[none] Exacerbation, Progression, or Severe Exacerbation] @ -[no] Poses a threat to life or bodily function? @ -[no] - Lab Data Result diagrams: 06/15/22 20:55 06/15/22 20:55 Lab Results 06/15/22 06/15/22 Range/Units 20:55 20:55 WBC 15.3 H (3.8-10.6) k/uL RBC 4.98 (3.80-5.40) m/uL Hgb 14.2 (11.4-16.0) gm/dL Hct 41.3 (34.0-46.0) % MCV 83.0 (80.0-100.0) fL MCH 28.5 (25.0-35.0) pg MCHC 34.3 (31.0-37.0) g/dL RDW 14.7 (11.5-15.5) % Plt Count 253 (150-450) k/uL MPV 7.9 Neutrophils % 79 % Lymphocytes % 15 % Monocytes % 4 % Eosinophils % 1 % Basophils % 0 % Neutrophils # 12.1 H (1.3-7.7) k/uL Lymphocytes # 2.3 (1.0-4.8) k/uL Monocytes # 0.5 (0-1.0) k/uL Eosinophils # 0.1 (0-0.7) k/uL Basophils # 0.0 (0-0.2) k/uL Sodium 135 L (137-145) mmol/L Potassium 4.1 (3.5-5.1) mmol/L Chloride 107 (98-107) mmol/L Carbon Dioxide 22 (22-30) mmol/L Anion Gap 6 mmol/L BUN 7 (7-17) mg/dL Creatinine 0.58 (0.52-1.04) mg/dL Est GFR (CKD-EPI)AfAm >90 (>60 ml/min/1.73 sqM) Est GFR (CKD-EPI)NonAf >90 (>60 ml/min/1.73 sqM) Glucose 91 (74-99) mg/dL Calcium 9.0 (8.4-10.2) mg/dL HCG, Quant 27931.3 mIU/mL Disposition Clinical Impression: Intrauterine , Subchorionic hemorrhage in first trimester, Threatened in first trimester Disposition: HOME SELF-CARE Condition: Good Instructions (If sedation given, give patient instructions): Subchorionic Hemorrhage (ED), at 11 to 14 Weeks (ED) Additional Instructions: Follow-up with your BEEF BREAKER. Pelvic rest and nothing in the vagina until cleared by OB. Return to the emergency room with a new or concerning symptoms. Increase your fluid intake. Is patient prescribed a controlled substance at d/c from ED?: No Referrals: Gray Pemberton MD [Primary Care Provider] - 1-2 days Time of Disposition: 22:11
[2022-06-15 21:12] LABS: Basophils % (A) 0 %; Eosinophils # (A) 0.1 k/uL (0-0.7); Eosinophils % (A) 1 %; HCT 41.3 % (34.0-46.0); HGB 14.2 gm/dL (11.4-16.0); Lymphocytes # (A) 2.3 k/uL (1.0-4.8); Lymphocytes % (A) 15 %; MCH 28.5 pg (25.0-35.0); MCHC 34.3 g/dL (31.0-37.0); Mean Platelet Volume 7.9; Monocytes # (A) 0.5 k/uL (0-1.0); Monocytes % (A) 4 %; Neutrophils # (A) 12.1 k/uL (1.3-7.7); Neutrophils % (A) 79 %; Platelet Count 253 k/uL (150-450); RBC 4.98 m/uL (3.80-5.40); RDW 14.7 % (11.5-15.5); WBC 15.3 k/uL (3.8-10.6)
[2022-06-15 21:22] LABS: African American GFR (CKD) >90 (>60 ml/min/1.73 sqM); Anion Gap 6 mmol/L; Blood Urea Nitrogen 7 mg/dL (7-17); Carbon Dioxide 22 mmol/L (22-30); Chloride 107 mmol/L (98-107); Glucose 91 mg/dL (74-99); Non-African American GFR(CKD) >90 (>60 ml/min/1.73 sqM); Potassium 4.1 mmol/L (3.5-5.1); Sodium 135 mmol/L (137-145)
--- NOTE | 2022-06-15 22:01 | US ---
EXAMINATION TYPE: Transabdominal DATE OF EXAM: 06/15/2022 9:46 PM COMPARISON: NONE CLINICAL HISTORY: vaginal bleeding 12 weeks preg.. cramping, vaginal bleeding EXAM PERFORMED: Transabdominal (TA) EXAM MEASUREMENTS: GESTATIONAL AGE / DATING Physician Established: Not yet established Dates by LMP: (12 weeks/4 days) EDC: 12/24/22 Dates by First Scan: (12 weeks/4 days) EDC: 12/24/22 Dates by Current Scan for: (12 weeks/4 days) EDC: 12/24/22 MATERNAL ANATOMY Uterus: 12.7 x 10.5 x 7.5cm Right Ovary: 6.1 x 2.7 x 3.9cm Left Ovary: 3.6 x 2.4 x 2.5cm Post CDS / Adnexa: wnl Presence of free fluid: no Presence of corpus luteal cyst: yes, right ovary = 2.7 x 1.8cm Presence of subchorionic bleed: 2.5 x 2.9 x 2.2cm GESTATION / SURVEY Large Body [place] CRL: 5.9cm (12 weeks/4 days) Yolk Sac (normal less than 6mm): not seen Heart Rate: 146 bpm Rhythm: Normal IUP: Viable IUP Date of LMP: 03/19/22 Beta HcG (if available): Not available at this time IMPRESSION: 1. Single live intrauterine gestation with ultrasound age of 12 weeks 4 days. 2. Tiny subchorionic hemorrhage.
[2022-06-15 22:07] LABS: HCG,Quantitative Serum 56393.3 mIU/mL
[2022-06-15 22:48] VITALS: BP 130/90; PULSE 84; RESP 18; TEMP 98.2
== END 2022-06-15 22:47 | disposition home or self-care (01) ==
LOC: EC 19:18
DX: O20.0 Threatened abortion (principal); Z88.0 Allergy status to penicillin; Z91.040 Latex allergy status; Z90.49 Acquired absence of other specified parts of digestive tract; Z90.89 Acquired absence of other organs; Z3A.12 12 weeks gestation of pregnancy
CPT/HCPCS: 36415; 76801; 80048; 84702; 85025; 99284

== ENCOUNTER 2022-07-29 10:01 | Outpatient (CLI) | payer OTHER ==
[2022-07-29] MEDS ORDERED: LACTATED RINGERS 1,000 ML IV SCH (11:00)
--- NOTE | 2022-07-29 11:02 | US ---
EXAMINATION TYPE: US OB limited DATE OF EXAM: 07/29/2022 COMPARISON: NONE CLINICAL HISTORY: Vaginal bleeding. History of cervical polyp. EXAM PERFORMED: Transabdominal (TA) GESTATIONAL AGE / DATING Physician Established: (18 weeks/6 days) EDC: 12-24-22 No growth performed on today?s study per ordering physician SURVEY PLACENTA: Anterior ( PREVIA: No Previa Ultrasound evidence of abruption? no PRESENTATION: Vertex HEART RATE: 161 bpm RHYTHM: Normal IMPRESSION: Limited ultrasound demonstrates anterior some intrauterine approximately 18 we eks 6 days
[2022-07-29 11:21] LABS: Basophils % (A) 0 %; Eosinophils # (A) 0.1 k/uL (0-0.7); Eosinophils % (A) 1 %; HCT 40.3 % (34.0-46.0); HGB 13.3 gm/dL (11.4-16.0); Lymphocytes # (A) 1.5 k/uL (1.0-4.8); Lymphocytes % (A) 8 %; MCH 28.4 pg (25.0-35.0); MCHC 33.1 g/dL (31.0-37.0); Monocytes # (A) 0.6 k/uL (0-1.0); Monocytes % (A) 3 %; Neutrophils # (A) 17.2 k/uL (1.3-7.7); Neutrophils % (A) 88 %; Platelet Count 235 k/uL (150-450); RBC 4.69 m/uL (3.80-5.40); RDW 14.6 % (11.5-15.5); WBC 19.6 k/uL (3.8-10.6)
[2022-07-29 12:03] VITALS: BP 136/95; PULSE 107; RESP 16; TEMP 96
--- NOTE | 2022-08-24 12:04 | P.MSEPDOC ---
Presenting Problems - Arrival Data Date of Arrival on Unit: 07/29/22 Time of Arrival on Unit: 10:01 Mode of Transport: Ambulatory - Complaint OB-Reason for Admission/Chief Complaint: Vaginal Bleeding Comment: Pt arrives to triage c/o lower back pain, cramping and vaginal bleeding. Back. pain started yesterday, cramping at 0400 and VB at 0700, bright red. Medical History - Information : 1 Para: 0 - Gestational Age Gestational Age by SONIA (wks/days): 18 Weeks and 6 Days Review of Systems - Review of Systems Constitutional: No problems Breast: No problems ENT: No problems Cardiovascular: No problems Respiratory: No problems Gastrointestinal: No problems Genitourinary: No problems Musculoskeletal: No problems Neurological: No problems Skin: No problems Vital Signs - Temperature Temperature: 96 F Temperature Source: Temporal Artery Scan - Pulse Right Sitting Brachial Pulse Rate: 107 Pulse Assessment Method: Automatic Cuff - Respirations Respiratory Rate: 16 Oxygen Delivery Method: Room Air O2 Sat by Pulse Oximetry: 98 - Blood Pressure Right Arm Sitting Blood Pressure: 136/95 Blood Pressure Mean: 108 Blood Pressure Source: Automatic Cuff Medical Screen Scoring - Assessment - Baby A Baseline FHR: 160 Physician Notification - Physician Notified Physician Notified Date: 07/29/22 Physician Notified Time: 11:40 Physician: Guillermo Dent New Order Received: Yes - Notification Comment Comment: 1025: Spk c\Dr. Dent, advsd of pts concerns of back pain x 1 days, cramping and. vaginal bleeding today, spec exam revealed large cervical polyp and active bleeding. noted. Order rec'd for bedside US. 1055: Spk c\Dr. Dent, reviewed US findings. Order rec'd for CBC and LR at O. Call c\CBC results. 1140: Spk c\Dr. Dent, advsd of pts CBC results as well as nickel size spot of. blood on peripad. Pt will be referred to [facility] to call pt with referral appt. Pt to. reschedule appt from 08/07 to this week, continue pelvic rest. Maternal Triage Index - Maternal Triage Index Presenting for scheduled procedure w/no complaint: No - Stat/Priority 1 Stat Priority 1: No - Urgent/Priority 2 Urgent Priority 2: Yes Provider Notified: Guillermo Dent Provider Notified Time: 10:25 Criteria Met for Priority 2: Vaginal bleeding Disposition - Disposition OB Disposition: Discharge to home, Written follow up instructions reviewed Discharge Date: 07/29/22 Discharge Time: 11:48 I agree with the RN Medical Screening Exam: Yes Physician's MSE Comment: I have neither seen nor examined the patient. Case reviewed; plan agreed upon as documented in EMR&OBIX.: Yes Diagnosis: RELATED CONDITIONS, UNSPECIFIED, SECOND TRIMESTER
== END 2022-07-29 11:48 | disposition home or self-care (01) ==
LOC: FBPOP 10:01
PROVIDERS: ATTEND Obstetrics & Gynecology
DX: O26.892 Other specified pregnancy related conditions, second trimester (principal); Z3A.18 18 weeks gestation of pregnancy; O20.9 Hemorrhage in early pregnancy, unspecified; Z91.040 Latex allergy status; Z88.0 Allergy status to penicillin
CPT/HCPCS: 36415; 76815; 85025; 96360; 99213; 99214

== ENCOUNTER 2022-07-31 01:41 | Emergency (ER) | payer OTHER ==
[2022-07-31 01:53] VITALS: RESP 18; TEMP 98.3
[2022-07-31] MEDS ORDERED: KETOROLAC 15 MG/ML 1 ML VIAL IVP STA (02:57)
[2022-07-31 02:59] LABS: ALT 13 U/L (4-34); AST 19 U/L (14-36); African American GFR (CKD) >90 (>60 ml/min/1.73 sqM); Albumin 3.3 g/dL (3.5-5.0); Alkaline Phosphatase 75 U/L (38-126); Anion Gap 8 mmol/L; Basophils % (A) 0 %; Blood Urea Nitrogen 6 mg/dL (7-17); Carbon Dioxide 20 mmol/L (22-30); Chloride 107 mmol/L (98-107); Eosinophils # (A) 0.2 k/uL (0-0.7); Eosinophils % (A) 1 %; Glucose 103 mg/dL (74-99); HGB 12.9 gm/dL (11.4-16.0); Lipase 156 U/L (23-300); Lymphocytes % (A) 13 %; MCH 28.8 pg (25.0-35.0); MCV 84.8 fL (80.0-100.0); Magnesium 1.9 mg/dL (1.6-2.3); Mean Platelet Volume 7.9; Monocytes # (A) 0.6 k/uL (0-1.0); Monocytes % (A) 4 %; Neutrophils # (A) 12.9 k/uL (1.3-7.7); Neutrophils % (A) 81 %; Non-African American GFR(CKD) >90 (>60 ml/min/1.73 sqM); Platelet Count 232 k/uL (150-450); Potassium 4.1 mmol/L (3.5-5.1); RBC 4.48 m/uL (3.80-5.40); RDW 14.4 % (11.5-15.5); Sodium 135 mmol/L (137-145); Total Bilirubin 0.6 mg/dL (0.2-1.3); Total Protein 6.1 g/dL (6.3-8.2)
--- NOTE | 2022-07-31 04:12 | US ---
EXAMINATION TYPE: US OB limited DATE OF EXAM: 07/31/2022 COMPARISON: 07/29/22 CLINICAL HISTORY: Vaginal bleeding, cramping, . vaginal bleeding, cramping every [address] the [address] checked her cervix and stated it was open. EXAM PERFORMED: Transvaginal (TV) and Transabdominal (TA) GESTATIONAL AGE / DATING Physician Established: (19 weeks/1 days) EDC: 12/24/22 No growth performed on today?s study per ordering physician SURVEY PLACENTA: Posterior PREVIA: No Ultrasound evidence of abruption? Fluid not measured, but appears to be a normal amount CERVICAL LENGTH (transabdominal: norm > 3.0cm): Not well vis CERVICAL LENGTH (transvaginal: norm> 2.5cm): 1.4 cm (Supplemental transvaginal imaging performed to verify cervical length.) Ultrasound evidence of cervical incompetence? Yes (Tech?if abnormal transabdominally?image transvaginally to substantiate abnormality.) PRESENTATION: Vertex LIE: Longitudinal HEART RATE: 150 bpm RHYTHM: Normal Cervix appears to be shortened IMPRESSION: Cervix measures 1.4 cm. heart rate is 150. Amniotic fluid is adequate.
--- NOTE | 2022-07-31 04:14 | US ---
EXAMINATION TYPE: US OB TV Cervical Measurement DATE OF EXAM: 07/31/2022 COMPARISON: NONE REASON FOR EXAM: Per Ordering Physician?this transvaginal scan is to assess the CERVICAL LENGTH for i ncompetence or funneling. HEART RATE: 150 bpm RHYTHM: Normal Images on the other OB study. IMPRESSION: Cervix is shortened and measures 1.4 cm.
--- NOTE | 2022-07-31 04:21 | ED ---
General Adult HPI - General Chief complaint: Abdominal Pain Stated complaint: 19 weeks preg, ABD Pain Time Seen by Provider: 07/31/22 02:02 Source: patient Mode of arrival: ambulatory Limitations: no limitations - History of Present Illness Initial comments: This is a 31-year-old female with no past medical history presents emergency department for abdominal cramping, vaginal bleeding and pain. The patient stated that she was seen on the labor and delivery floor yesterday for similar complaints but was sent home after a negative workup. The patient is 19 weeks gestation and is a and was known to have a cervical polyp noted. The patient stated that she was doing well throughout the day but noted that she had increasing vaginal bleeding that started approximately 3 hours prior to arrival and abdominal cramping every 1-2 minutes. The patient took Tylenol prior to arrival but stated that the pain was severe and due to the bleeding she came to the emergency department for further evaluation. The patient denied any other acute pain or complaints at this time. - Related Data Home Medications Medication Instructions Recorded Confirmed Dhl-[id number]-[id number] Acid 1 cap PO DAILY 06/02/22 07/29/22 [-U Capsule (formulary)] Aspirin 81 mg PO DAILY 07/14/22 07/29/22 Previous Rx's Medication Instructions Recorded Cephalexin [Keflex] 500 mg PO Q6HR 1 Days #20 cap 07/31/22 Allergies Allergy/AdvReac Type Severity Reaction Status Date / Time Latex, Natural Rubber Allergy Rash/Hives Verified 07/31/22 01:50 at contact site Penicillins Allergy Hives all Verified 07/31/22 01:50 over body Review of Systems ROS Statement: Those systems with pertinent positive or pertinent negative responses have been documented in the HPI. ROS Other: All systems not noted in ROS Statement are negative. Past Medical History Past Medical History: Hyperlipidemia Additional Past Medical History / Comment(s): family hx. colon cancer, intermittent rectal bleeding. PT STATES JUST GETTING OVER A "COLD"-SHE WILL NOTIFY DR Rica ROMERO'S OFFICE. History of Any Multi-Drug Resistant Organisms: None Reported Past Surgical History: Adenoidectomy, Cholecystectomy, Tonsillectomy Additional Past Surgical History / Comment(s): birthmark removed from chest Past Anesthesia/Blood Transfusion Reactions: No Reported Reaction Additional Past Anesthesia/Blood Transfusion Reaction / Comment(s): STATES SHE WOKE UP DURING 1 SURGERY. Past Psychological History: No Psychological Hx Reported Smoking Status: Never smoker - Past Family History Mother Family Medical History: No Reported History General Exam Limitations: no limitations General appearance: alert, in distress (In moderate distress secondary to pelvic cramping every 1-2 minutes) Head exam: Present: atraumatic, normocephalic, normal inspection Eye exam: Present: normal appearance, PERRL Pupils: Present: normal accommodation ENT exam: Present: normal exam, normal oropharynx, mucous membranes moist Neck exam: Present: normal inspection, full ROM Respiratory exam: Present: normal lung sounds bilaterally Cardiovascular Exam: Present: regular rate, normal rhythm, normal heart sounds GI/Abdominal exam: Present: soft, normal bowel sounds External exam: Present: normal external exam Speculum exam: Present: vaginal bleeding (With clots in the vaginal vault), other (Cervical os appeared open with a large, 2 cm round darkened area of tissue in the cervical os) By manual exam: Present: normal by manual exam Extremities exam: Present: normal inspection, full ROM Back exam: Present: normal inspection, full ROM Neurological exam: Present: alert, oriented X3, CN II-XII intact Psychiatric exam: Present: normal affect, normal mood Skin exam: Present: warm, dry Course Vital Signs 07/31/22 07/31/22 07/31/22 01:50 02:32 02:40 Temperature 98.3 F Pulse Rate 87 Respiratory 18 Rate Blood Pressure 147/78 153/88 153/88 O2 Sat by Pulse 98 98 Oximetry Medical Decision Making - Medical Decision Making Was pt. sent in by a medical professional or institution (, PA, HOSPITAL MANAGER, urgent care, hospital, or snf...) When possible be specific @ -No Did you speak to anyone other than the patient for history (EMS, parent, family, police, friend...)? What history was obtained from this source @ -No Did you review nursing and triage notes (agree or disagree)? Why? @ -I reviewed and agree with nursing and triage notes Were old charts reviewed (outside hosp., previous admission, EMS record, old EKG, old radiological studies, urgent care reports/EKG's, snf records)? Report findings @ -No old charts were reviewed Differential Diagnosis (chest pain, altered mental status, abdominal pain women, abdominal pain men, vaginal bleeding, weakness, fever, dyspnea, syncope, headache, dizziness, GI bleed, back pain, seizure, CVA, palpatations, mental health)? @ -Vaginal bleeding in , subchorionic hemorrhage, active labor, miscarriage EKG interpreted by me (3pts min.). @ -None X-rays interpreted by me (1pt min.). @ -None done CT interpreted by me (1pt min.). @ -None done U/S interpreted by me (1pt. min.). @ -Transvaginal ultrasound was obtained and showed a heart tone of 150 without any obvious other no deformities. What testing was considered but not performed or refused? (CT, X-rays, U/S, labs)? Why? @ -None What meds were considered but not given or refused? Why? @ -The patient was ordered Toradol per the LOBSTER MAN however the patient did refuse this medication. Did you discuss the management of the patient with other professionals (professionals i.e. , PA, HOSPITAL MANAGER, lab, RT, psych nurse, social insurance administrator, actionscript developer, teacher, loan servicing officer, ed case manager)? Give summary @ -Yes, the patient's LOBSTER MAN, Dr. Dent, who did state that the patient had a large cervical polyp noted and this was likely but was seen on the speculum exam. He did recommend transvaginal ultrasound and if the patient had heart tones, the patient could be discharged to see him in the office for follow-up and consult with MFM. Was smoking cessation discussed for >3mins.? @ -No Was critical care preformed (if so, how long)? @ -No Were there social determinants of health that impacted care today? How? (Homelessness, low income, unemployed, alcoholism, drug addiction, transportation, low edu. Level, literacy, decrease access to med. care, care home, rehab)? @ -No Was there de-escalation of care discussed even if they declined (Discuss DNR or withdrawal of care, Hospice)? DNR status @ -No What co-morbidities impacted this encounter? (DM, HTN, Smoking, COPD, CAD, Cancer, CVA, ARF, Chemo, Hep., AIDS, mental health diagnosis, sleep apnea, morbid obesity)? @ -None Was patient admitted / discharged? Hospital course, mention meds given and route, prescriptions, significant lab abnormalities, going to OR and other pertinent info. @ -The patient was seen and evaluated emergency department. Physical exam, the patient was resting in bed in moderate distress secondary to abdominal cramping. Vital signs admission were stable. Due to the nature the patient's complaints, pelvic exam was obtained and showed large amount of blood in the vaginal vault as well as her cervical os appearing to be open with a dark large tissue in the os. Because of this, the patient's LOBSTER MAN was contacted and he did state that this is likely her polyp that has been previously noted in seen as recently as yesterday. He suggested a transvaginal ultrasound for further evaluation and heart tones. The transvaginal ultrasound was within normal limits and showed a heart tone of 150. It was recommended the patient could be discharged home to follow-up with the LOBSTER MAN in the office for consult with M for possible removal of the cervical polyp. The patient was told of this plan and was agreeable. The patient was also advised report back to the emergency department for further workup if she has worsening abdominal pain and cramping that is uncontrolled by Tylenol at home. The patient's urinalysis was positive for UTI and was given a dose of Keflex in the emergency department. The patient was also given a prescription for Keflex to be taken at home. The patient was discharged home in stable condition. Undiagnosed new problem with uncertain prognosis? @ -No Drug Therapy requiring intensive monitoring for toxicity (Heparin, Nitro, Insulin, Cardizem)? @ -No Were any procedures done? @ -No Diagnosis/symptom? @ -Threatened Acute, or Chronic, or Acute on Chronic? @ -Acute on chronic Uncomplicated (without systemic symptoms) or Complicated (systemic symptoms)? @ -Complicated Side effects of treatment? @ -No Exacerbation, Progression, or Severe Exacerbation? @ -No Poses a threat to life or bodily function? How? (Chest pain, [place], [place], pneumonia, PE, COPD, DKA, ARF, appy, cholecystitis, CVA, Diverticulitis, Homicidal, Suicidal, threat to staff... and all critical care pts) @ -No Diagnosis/symptom? @ -UTI in Acute, or Chronic, or Acute on Chronic? @ -Acute Uncomplicated (without systemic symptoms) or Complicated (systemic symptoms)? @ -Uncomplicated Side effects of treatment? @ -none Exacerbation, Progression, or Severe Exacerbation] @ -no Poses a threat to life or bodily function? @ -no - Lab Data Result diagrams: 07/31/22 02:29 07/31/22 02:29 Lab Results 07/31/22 07/31/22 07/31/22 Range/Units 02:29 02: 02:29 WBC 16.0 H (3.8-10.6) k/uL RBC 4.48 (3.80-5.40) m/uL Hgb 12.9 (11.4-16.0) gm/dL Hct 38.0 (34.0-46.0) % MCV 84.8 (80.0-100.0) fL MCH 28.8 (25.0-35.0) pg MCHC 34.0 (31.0-37.0) g/dL RDW 14.4 (11.5-15.5) % Plt Count 232 (150-450) k/uL MPV 7.9 Neutrophils % 81 % Lymphocytes % 13 % Monocytes % 4 % Eosinophils % 1 % Basophils % 0 % Neutrophils # 12.9 H (1.3-7.7) k/uL Lymphocytes # 2.0 (1.0-4.8) k/uL Monocytes # 0.6 (0-1.0) k/uL Eosinophils # 0.2 (0-0.7) k/uL Basophils # 0.0 (0-0.2) k/uL Sodium 135 L (137-145) mmol/L Potassium 4.1 (3.5-5.1) mmol/L Chloride 107 (98-107) mmol/L Carbon Dioxide 20 L (22-30) mmol/L Anion Gap 8 mmol/L BUN 6 L (7-17) mg/dL Creatinine 0.54 (0.52-1.04) mg/dL Est GFR (CKD-EPI)AfAm >90 (>60 ml/min/1.73 sqM) Est GFR (CKD-EPI)NonAf >90 (>60 ml/min/1.73 sqM) Glucose 103 H (74-99) mg/dL Calcium 9.0 (8.4-10.2) mg/dL Magnesium 1.9 (1.6-2.3) mg/dL Total Bilirubin 0.6 (0.2-1.3) mg/dL AST 19 (14-36) U/L ALT 13 (4-34) U/L Alkaline Phosphatase 75 (38-126) U/L Total Protein 6.1 L (6.3-8.2) g/dL Albumin 3.3 L (3.5-5.0) g/dL Lipase 156 (23-300) U/L Blood Type A Positive Blood Type Recheck A Pos Bld Type Recheck Status No Antibody Screen NEGATIVE Spec Expiration Date 08/03/20222328 Disposition Clinical Impression: Vaginal bleeding during , Cervical polyp, Threatened , UTI (urinary tract infection) Disposition: HOME SELF-CARE Condition: Stable Instructions (If sedation given, give patient instructions): Threatened Miscarriage (ED), Urinary Tract Infection in Women (DC) Prescriptions: Cephalexin [Keflex] 500 mg PO Q6HR 1 Days #20 cap Is patient prescribed a controlled substance at d/c from ED?: No Referrals: Gray Pemberton MD [Primary Care Provider] - 1-2 days Time of Disposition: 05:00
[2022-07-31 04:31] LABS: Appearance,Urine Clear (Clear); Bacteria,Urine Rare /hpf; Bilirubin,Urine Negative (Negative); Blood,Urine Large (Negative); Color,Urine Light Yellow; Glucose,Urine (UA) Negative (Negative); Ketones,Urine Negative (Negative); Leukocyte Esterase,Urine Moderate (Negative); Nitrite,Urine Negative (Negative); PH, Urine 6.5 (5.0-8.0); Protein,Urine Negative (Negative); RBC,Urine 24 /hpf (0-5); Specific Gravity,Urine 1.004 (1.001-1.035); Squamous Epithelial Cell,Urine <1 /hpf (0-4); Urobilinogen,Urine <2.0 mg/dL (<2.0); WBC,Urine 12 /hpf (0-5)
[2022-07-31] MEDS ORDERED: CEPHALEXIN 500 MG CAP PO STA (05:05)
[2022-07-31 05:26] VITALS: BP 124/89; PULSE 96
== END 2022-07-31 05:48 | disposition home or self-care (01) ==
LOC: EC 01:41
DX: O20.9 Hemorrhage in early pregnancy, unspecified (principal); O20.0 Threatened abortion; O23.42 Unspecified infection of urinary tract in pregnancy, second trimester; O34.42 Maternal care for other abnormalities of cervix, second trimester; N84.1 Polyp of cervix uteri; Z90.49 Acquired absence of other specified parts of digestive tract; Z88.0 Allergy status to penicillin; Z91.040 Latex allergy status; Z3A.19 19 weeks gestation of pregnancy
CPT/HCPCS: 36415; 86900; 86901; 80053; 83690; 83735; 85025; 86850; 81001; 87086; 76815; 76817; 99284; 96374; J1885

== ENCOUNTER → 2022-08-05 | Outpatient (CLI) | payer OTHER | END | disposition home or self-care (01) | LOC: LABPAT 15:33 | PROVIDERS: ATTEND Obstetrics & Gynecology | DX: Z01.812 Encounter for preprocedural laboratory examination (principal); O03.4 Incomplete spontaneous abortion without complication; N84.0 Polyp of corpus uteri ==

== ENCOUNTER → 2022-08-07 | Outpatient (CLI) | payer OTHER ==
[2022-08-07 18:10] LABS: Basophils # (A) 0.05 X 10*3/uL (0.00-0.10); Basophils % (A) 0.4 %; Eosinophils # (A) 0.14 X 10*3/uL (0.04-0.35); Eosinophils % (A) 1.2 %; HGB 11.9 g/dL (12.0-15.0); Immature Grans, Automated 1.2 %; Lymphocytes # (A) 2.17 X 10*3/uL (0.90-5.00); Lymphocytes % (A) 18.6 %; MCH 28.7 pg (27.0-32.0); MCHC 32.2 g/dL (32.0-37.0); MCV 89.2 fL (80.0-97.0); Mean Platelet Volume 10.1 fL (9.5-12.2); Monocytes # (A) 0.45 X 10*3/uL (0.20-1.00); Monocytes % (A) 3.9 %; NRBC Per 100 WBC 0 /100 WBCS (0.0-0.0); Neutrophils # (A) 8.71 X 10*3/uL (1.80-7.70); Neutrophils % (A) 74.7 %; Platelet Count 329 X 10*3/uL (140-440); RBC 4.15 X 10*6/uL (4.10-5.20); RDW 14.4 % (11.5-14.5); WBC 11.66 X 10*3/uL (4.50-10.00)
== END | disposition home or self-care (01) ==
LOC: LABPAT 10:43
PROVIDERS: ATTEND Obstetrics & Gynecology
DX: Z01.812 Encounter for preprocedural laboratory examination (principal); O03.4 Incomplete spontaneous abortion without complication; N84.0 Polyp of corpus uteri; Z3A.00 Weeks of gestation of pregnancy not specified
CPT/HCPCS: 36415; 85025

== ENCOUNTER 2022-08-09 06:33 | Day surgery (SDC) | payer OTHER ==
[2022-08-07 11:23] VITALS: BMI 40.8
[~2022-08-09 06:33] MED LIST: Pre Op ABX Message 1 EACH MISC MISCELLANE ONE
[2022-08-09] MEDS ORDERED: ONDANSETRON 4 MG/2 ML VIAL ONE (06:58)
[2022-08-09] MEDS ORDERED: ONDANSETRON 4 MG/2 ML VIAL IVP ONE (07:19)
[2022-08-09] MEDS ORDERED: DEXAMETHASONE SOD PHOSPHATE 4 MG/ML 1 ML VIAL IV ONE (07:19)
[2022-08-09] MEDS ORDERED: LACTATED RINGERS 1,000 ML IV ONE (07:19)
[2022-08-09] MEDS ORDERED: fentaNYL (PF) 50 MCG/ML 2 ML AMP ONE (07:28)
[2022-08-09] MEDS ORDERED: LIDOCAINE 2% INJ 20 MG/ML (2 ML VIAL) ONE (07:28)
[2022-08-09] MEDS ORDERED: PROPOFOL 10 MG/ML 20 ML VIAL IV ONE (07:28)
[2022-08-09] MEDS ORDERED: MIDAZOLAM 2 MG/2 ML VIAL ONE (07:28)
[2022-08-09] MEDS ORDERED: SIMETHICONE 80 MG CHEWABLE PO PRN (08:10)
[2022-08-09] MEDS ORDERED: KETOROLAC 15 MG/ML 1 ML VIAL IVP PRN (08:10)
[2022-08-09] MEDS ORDERED: Acetaminophen-Codeine 300-30mg TAB PO PRN ×2 (08:10)
[2022-08-09] MEDS ORDERED: diphenhydrAMINE 50 MG/ML 1 ML VIAL IVP PRN (08:10)
[2022-08-09] MEDS ORDERED: IBUPROFEN 600 MG TAB PO PRN (08:10)
[2022-08-09] MEDS ORDERED: METOCLOPRAMIDE 5 MG/ML 2 ML VIAL IVP PRN (08:10)
[2022-08-09] MEDS ORDERED: ONDANSETRON 4 MG/2 ML VIAL IVP PRN (08:10)
[2022-08-09] MEDS ORDERED: LACTATED RINGERS 1,000 ML IV SCH (08:15)
--- NOTE | 2022-08-09 08:17 | P.OP ---
Date of Procedure: 08/09/22 Preoperative Diagnosis: #1. Retained products of conception #2. Endocervical polyp Postoperative Diagnosis: Same Procedure(s) Performed: #1. Dilation and aspiration curettage Anesthesia: other (Gen. by LMA) Surgeon: Guillermo Dent Estimated Blood Loss (ml): 200 IV fluids (ml): 200 Urine output (ml): 10 Pathology: other (Intrauterine contents) Condition: stable Disposition: PACU Operative Findings: Preoperative pelvic examination demonstrated a an anteverted roughly 12-14 week size uterus with a dilated cervical os. The adnexa were nonpalpable and without any apparent masses bilaterally. Intraoperatively, the uterus sounded to approximate 14 cm. The previously noted endocervical polyp was not in evidence during the entire surgery leaving a suspicion that may benefit portion of placenta protruding from the cervix and leading to loss. There was a moderate amount of tissue removed during the procedure both with sharp curettage and suction curettage. Following both procedures, the in vitro cavity had the typical gritty texture using the sharp curet. Uterus was appreciably smaller following the procedure. Description of Procedure: The patient was prepped and draped in usual fashion after general anesthesia was administered by the anesthesiologist. A weighted speculum was placed and the bladder drained of approximately 10 mL of clear brandon urine. The anterior lip cervix was grasped with a single-tooth tenaculum and the uterus sounded to 14 cm as noted above. A large sharp curette was introduced and the endometrial cavity and then thorough and circumferential curettage carried out onto a Telfa in the vagina at which time there was a moderate amount of tissue noted along with a moderate amount of bleeding. Prior to using the curet, a polyp forceps was introduced and there was noted to be tissue removed on several passes. After several passes with the sharp curet, the decision was made to proceed with aspiration curettage. A #14 curved suction curette was introduced into the endometrial cavity to the fundus at which time suction was applied and thorough and circumferential curettage carried out from the fundus to the cervix with small amount of tissue noted passing into the tubing. After several passes with the suction curet, the sharp curette was reintroduced at which time the cavity was appreciably smaller and the typical gritty texture was encountered throughout. No further tissue was noted to be passing at this time. All instrumentation was removed. One of the tenaculum sites was noted to be bleeding was made hemostatic with pressure. Total blood loss for the entire case was approximately 200 mL. There were no complications. All sponge, instrument, needle counts were correct. The patient tolerated the procedure well and proceeded to the recovery room in stable condition.
[2022-08-09] MEDS ORDERED: KETOROLAC 15 MG/ML 1 ML VIAL IVP ONE (08:19)
[2022-08-09 08:22] VITALS: TEMP 97.3
[2022-08-09 09:12] VITALS: PULSE 72
[2022-08-09 09:34] VITALS: BP 114/78; RESP 20
== END 2022-08-09 09:40 | disposition home or self-care (01) ==
LOC: OR 06:33
PROVIDERS: ATTEND Obstetrics & Gynecology
DX: O73.1 Retained portions of placenta and membranes, without hemorrhage (principal); N71.1 Chronic inflammatory disease of uterus; N84.1 Polyp of cervix uteri; E66.3 Overweight; Z90.49 Acquired absence of other specified parts of digestive tract; Z98.890 Other specified postprocedural states; Z79.899 Other long term (current) drug therapy
CPT/HCPCS: 86900; 86901; 88305; 86850; 59812; J2250; J1100; J2405; J3010; J1885; J2704; J1790; J2001

== ENCOUNTER 2022-09-27 06:40 | Day surgery (SDC) | payer OTHER ==
[2022-09-25 15:16] VITALS: BMI 41.6
[~2022-09-27 06:40] MED LIST changes: +DEXAMETHASONE SOD PHOSPHATE 4 MG/ML 1 ML VIAL IV ONE; +HYDROmorphone 0.5 MG/0.5 ML SYRINGE IVP PRN; +LACTATED RINGERS 1,000 ML IV SCH; +LIDOCAINE 1% (10MG/ML) FOR IV START INTRADERMA PRN; +MIDAZOLAM 2 MG/2 ML VIAL IV PRN; +ONDANSETRON 4 MG/2 ML VIAL IVP ONE
[2022-09-27] MEDS ORDERED: ONDANSETRON 4 MG/2 ML VIAL ONE (07:18)
[2022-09-27] MEDS ORDERED: KETOROLAC 15 MG/ML 1 ML VIAL ONE (07:20)
[2022-09-27] MEDS ORDERED: fentaNYL (PF) 50 MCG/ML 2 ML AMP ONE (07:20)
[2022-09-27] MEDS ORDERED: MIDAZOLAM 2 MG/2 ML VIAL ONE (07:20)
[2022-09-27] MEDS ORDERED: PROPOFOL 10 MG/ML 20 ML VIAL IV ONE (07:20)
[2022-09-27] MEDS ORDERED: SUCCINYLCHOLINE CHLORIDE 200 MG/10 ML VIAL IV ONE (07:20)
[2022-09-27] MEDS ORDERED: LIDOCAINE 2% INJ 20 MG/ML (2 ML VIAL) ONE (07:20)
[2022-09-27] MEDS ORDERED: ONDANSETRON 4 MG/2 ML VIAL IVP PRN (08:04)
[2022-09-27] MEDS ORDERED: diphenhydrAMINE 50 MG/ML 1 ML VIAL IVP PRN (08:04)
[2022-09-27] MEDS ORDERED: Acetaminophen-Codeine 300-30mg TAB PO PRN ×2 (08:04)
[2022-09-27] MEDS ORDERED: KETOROLAC 15 MG/ML 1 ML VIAL IVP PRN (08:04)
[2022-09-27] MEDS ORDERED: METOCLOPRAMIDE 5 MG/ML 2 ML VIAL IVP PRN (08:04)
[2022-09-27] MEDS ORDERED: IBUPROFEN 600 MG TAB PO PRN (08:04)
[2022-09-27] MEDS ORDERED: SIMETHICONE 80 MG CHEWABLE PO PRN (08:04)
--- NOTE | 2022-09-27 08:11 | P.OP ---
Date of Procedure: 09/27/22 Preoperative Diagnosis: #1. Presumptive endometrial polyp Postoperative Diagnosis: Same Procedure(s) Performed: #1. Diagnostic hysteroscopy #2. Dilation and endometrial curettage, polypectomy Anesthesia: DIYA Surgeon: Guillermo Dent Estimated Blood Loss (ml): 5 IV fluids (ml): 300 Urine output (ml): 20 Pathology: other (Endometrial curettings/intrauterine contents) Condition: stable Disposition: PACU Operative Findings: Preoperative pelvic examination demonstrated a 4-5 week anteverted mobile normal shaped uterus with normal adnexa bilaterally. Intraoperatively, the uterus sounded to approximately 8 cm. Using the hysteroscope, there did appear to be in the right fundal portion an area of a tissue which may have represented placental remnant. Inferior and lateral to that on the right uterine sidewall just below the tubal ostia wasn't area that appeared polypoid in nature. Tissue was seen emerging with curettage and the typical gritty texture was encountered throughout the entire uterine curettage. Description of Procedure: The patient was prepped and draped in usual fashion after general endotracheal anesthesia was administered by the anesthesiologist. A weighted speculum was placed and the bladder was drained of approximately 20 mL of clear brandon urine. The anterior lip of the cervix was grasped with a single-tooth tenaculum and the uterus sounded to 8 cm as noted above. Serial dilation was carried out to admit the diagnostic hysteroscope which was placed in the fundus and the uterus distended with saline. The left tubal ostia was entirely normal as was the fundus of the uterus aside from the findings as noted above with an area in the right fundal portion that may have represented a previous implantation sites for the or possibly a remnant placental tissue. Inferior to that on the lateral sidewall on the right just below the level of the tubal ostia which was also seen was an area are consistent with this possible endometrial polyp. The remainder of the uterine cavity was normal without any evidence of pathology. A medium sharp curette was introduced into the endometrial cavity and the entire cavity thoroughly and circumferentially curetted onto a Telfa in the vagina. Special attention was paid to the right superior portion of the fundus. There did appear to be tissue emerging with curettage. After 2-3 passes, the sharp curet was replaced with a polyp forceps. The polyp forceps failed to yield any obvious tissue. 2 more passes were made with the sharp curet with no further tissue being noted. The typical gritty texture was encountered throughout. All instrumentation was removed. There was no ongoing bleeding from either the tenaculum site or the cervix itself. Estimated blood loss for the case was less than 5 mL. There were no complications. All sponge, instrument, and needle counts were correct. The patient tolerated the procedure well and proceeded to the recovery room in stable condition.
[2022-09-27] MEDS ORDERED: LACTATED RINGERS 1,000 ML IV SCH (08:15)
[2022-09-27 08:21] VITALS: TEMP 97.4
[2022-09-27] MEDS ORDERED: LACTATED RINGERS 1,000 ML IV ONE (08:41)
[2022-09-27 10:23] VITALS: BP 112/70; PULSE 73; RESP 16
[2022-09-28] MEDS ORDERED: ACETAMINOPHEN TAB 325 MG TAB PO PRN (08:04)
== END 2022-09-27 10:35 | disposition home or self-care (01) ==
LOC: OR 06:40
PROVIDERS: ATTEND Obstetrics & Gynecology
DX: N84.0 Polyp of corpus uteri (principal); E78.5 Hyperlipidemia, unspecified; F12.90 Cannabis use, unspecified, uncomplicated; Z91.040 Latex allergy status; Z79.899 Other long term (current) drug therapy
CPT/HCPCS: 81025; 88305; 58558; J2250; J0330; J1100; J2405; J3010; J1885; J2704; J2001

== ENCOUNTER 2024-01-20 16:02 | Outpatient (CLI) | payer OTHER ==
[2024-01-20 16:47] VITALS: RESP 18; TEMP 97.8
[2024-01-20 16:48] VITALS: BP 156/91; PULSE 84
[2024-01-20 16:49] LABS: Basophils % (A) 0 %; Eosinophils # (A) 0.1 k/uL (0-0.7); Eosinophils % (A) 1 %; HGB 13.6 gm/dL (11.4-16.0); Lymphocytes # (A) 1.8 k/uL (1.0-4.8); Lymphocytes % (A) 15 %; MCV 85.2 fL (80.0-100.0); Mean Platelet Volume 8.1; Monocytes # (A) 0.6 k/uL (0-1.0); Monocytes % (A) 5 %; Neutrophils # (A) 9.7 k/uL (1.3-7.7); Neutrophils % (A) 78 %; Platelet Count 256 k/uL (150-450); RBC 4.69 m/uL (3.80-5.40); WBC 12.4 k/uL (3.8-10.6)
[2024-01-20 17:07] LABS: Uric Acid 3.8 mg/dL (3.7-7.4)
[2024-01-20] MEDS: LABETALOL 100 MG TAB PO SCH (17:34)
--- NOTE | 2024-01-30 09:20 | P.MSEPDOC ---
Presenting Problems - Arrival Data Date of Arrival on Unit: 01/20/24 Time of Arrival on Unit: 16:02 Mode of Transport: Ambulatory - Complaint OB-Reason for Admission/Chief Complaint: PIH Comment: Pt sent from office with order to labs d/t high b/p in office today Medical History - Information : 2 Para: 0 Term: 0 : 0 Abortions: Spontaneous or Elective: 1 Number of Living Children: 0 - Gestational Age Gestational Age by SONIA (wks/days): 35 Weeks and 4 Days Review of Systems - Review of Systems Constitutional: No problems Breast: No problems ENT: No problems Cardiovascular: No problems Respiratory: No problems Gastrointestinal: No problems Genitourinary: No problems Musculoskeletal: No problems Neurological: No problems Skin: No problems Vital Signs - Temperature Temperature: 97.8 F Temperature Source: Oral - Pulse Right Pulse Rate: 84 Pulse Assessment Method: Automatic Cuff - Respirations Respiratory Rate: 18 Oxygen Delivery Method: Room Air O2 Sat by Pulse Oximetry: 98 - Blood Pressure Right Arm Blood Pressure: 156/91 Blood Pressure Mean: 112 Blood Pressure Source: Automatic Cuff Medical Screen Scoring - Assessment - Baby A Baseline FHR: 130 Heart Rate - NICHD Category: Category I (Normal) NST: Reactive Physician Notification - Physician Notified Physician Notified Date: 01/20/24 Physician Notified Time: 17:20 Physician: Guillermo Dent New Order Received: Yes (give labetalol and discharge home to get script in AM) Maternal Triage Index - Maternal Triage Index Presenting for scheduled procedure w/no complaint: No - Stat/Priority 1 Stat Priority 1: No - Urgent/Priority 2 Urgent Priority 2: Yes Provider Notified: Guillermo Dent Provider Notified Time: 17:20 Criteria Met for Priority 2: pt to get script for Labetalol. labs WNL - Prompt/Priority 3 Prompt Priority 3: No - Non-Urgent/Priority 4 Non-Urgent Priority 4: No Disposition - Disposition OB Disposition: Discharge to home Discharge Date: 01/20/24 Discharge Time: 17:39 I agree with the RN Medical Screening Exam: Yes Case reviewed; plan agreed upon as documented in EMR&OBIX.: Yes Diagnosis: RELATED CONDITIONS, UNSPECIFIED, THIRD TRIMESTER
== END 2024-01-20 17:40 | disposition home or self-care (01) ==
LOC: FBPOP 16:02
PROVIDERS: ATTEND Obstetrics & Gynecology
CPT/HCPCS: 36415; 59025; 83615; 84156; 84450; 84460; 84550; 85025

== ENCOUNTER 2024-01-26 12:33 | Outpatient (CLI) | payer OTHER ==
[2024-01-26 14:22] VITALS: BP 141/88; PULSE 95; RESP 20; TEMP 97
--- NOTE | 2024-01-30 09:22 | P.MSEPDOC ---
Presenting Problems - Arrival Data Date of Arrival on Unit: 01/26/24 Time of Arrival on Unit: 12:33 Mode of Transport: Ambulatory - Complaint OB-Reason for Admission/Chief Complaint: Other Comment: bp's up at home last night and today. started on labatolol a week ago for elevated bp's. Medical History - Information : 2 Para: 0 Term: 0 : 0 Abortions: Spontaneous or Elective: 1 Number of Living Children: 0 - Gestational Age Gestational Age by SONIA (wks/days): 36 Weeks and 3 Days Review of Systems - Review of Systems Constitutional: No problems Breast: No problems ENT: No problems Cardiovascular: No problems Respiratory: No problems Gastrointestinal: No problems Genitourinary: No problems Musculoskeletal: No problems Neurological: No problems Skin: No problems Comment: pt states headaches and blirred vision freq. but not constant. occasional heartburn Vital Signs - Temperature Temperature: 97.0 F Temperature Source: Temporal Artery Scan - Pulse Right Radial Pulse Rate: 95 Pulse Assessment Method: Automatic Cuff - Respirations Respiratory Rate: 20 Oxygen Delivery Method: Room Air - Blood Pressure Right Arm Blood Pressure: 141/88 Blood Pressure Mean: 105 Blood Pressure Source: Automatic Cuff Medical Screen Scoring - Cervical Exam Membranes: Intact - Uterine Contractions Intensity: Absent - Assessment - Baby A Baseline FHR: 135 Heart Rate - NICHD Category: Category I (Normal) NST: Reactive Physician Notification - Physician Notified Physician Notified Date: 01/26/24 Physician Notified Time: 13:00 Physician: Guillermo Umanzor Order Received: Yes (observe bp's . reactive nst. may go home with instructions) - Notification Comment Comment: follow up /scheduled appt with dr umanzor on friday , jan 27. Maternal Triage Index - Scheduled/Requesting Priority 5 Scheduled/Requesting Priority 5: Yes Criteria Met for Priority 5: called office sent here for bp' checks. Disposition - Disposition OB Disposition: Discharge to home, Written follow up instructions reviewed Discharge Date: 01/26/24 Discharge Time: 14:05 I agree with the RN Medical Screening Exam: Yes Physician's MSE Comment: I have neither seen nor examined the patient. Case reviewed; plan agreed upon as documented in EMR&OBIX.: Yes Diagnosis: RELATED CONDITIONS, UNSPECIFIED, THIRD TRIMESTER
== END 2024-01-26 14:05 | disposition home or self-care (01) ==
LOC: FBPOP 12:33
PROVIDERS: ATTEND Obstetrics & Gynecology
CPT/HCPCS: 59025; 99213

== ENCOUNTER 2024-02-03 17:00 | Inpatient (IN) | payer OTHER ==
[2024-02-03] MEDS: DINOPROSTONE 10 MG INSERT.ER VAGINAL ONE (19:30)
[2024-02-03] MEDS ORDERED: NALBUPHINE 10 MG/ML (10 ML MDV) IV PRN (19:38)
--- NOTE | 2024-02-03 19:44 | P.HPOB ---
History of Present Illness H&P Date: 02/03/24 Chief Complaint: 37-5/7 weeks, -induced hypertension, unfavorable c ervix The patient is a 33-year-old 2 para 0-0-1-0 admitted at 37-5/7 weeks as established by last menstrual period and confirmed by 8-week ultrasound. She is admitted for induction of labor with Cervidil cervical ripening secondary to an unfavorable cervix and -induced hypertension with no evidence of preeclampsia. She has been stable on labetalol 100 mg twice daily over the last several weeks. testing has been reassuring on a weekly basis. Her was otherwise essentially uncomplicated. She carries a history of a 20-week loss secondary to a very large endometrial polyp. On labor and delivery, all signs are reassuring with a category 1 heart rate tracing. Group B strep status is positive. Obstetrical history: 2 para 0-0-1-0 with a 19-week loss as noted in history of present illness. Current statistics are listed in history of present illness. EDC of 02/19/2024 was established by last menstrual period and confirmed by 8-week ultrasound. Laboratory workup demonstrates a blood type of a positive with a negative antibody screen. Rubella status is immune. The remainder of the laboratory workup was within normal limits. Early Glucola was elevated and followed by a normal 3-hour glucose tolerance test. Second trimester Glucola is undocumented. Group B strep status is positive. Gynecologic history: Unremarkable with no history of any infections to include STDs. Review of Systems Review of systems is confined to history of present illness. Past Medical History Past Medical History: Hyperlipidemia Additional Past Medical History / Comment(s): family hx. colon cancer, intermittent rectal bleeding. PT STATES JUST GETTING OVER A "COLD"-SHE WILL NOTIFY DR Rica ROMERO'S OFFICE. History of Any Multi-Drug Resistant Organisms: None Reported Past Surgical History: Adenoidectomy, Cholecystectomy, Tonsillectomy Additional Past Surgical History / Comment(s): birthmark removed from chest Past Anesthesia/Blood Transfusion Reactions: No Reported Reaction Additional Past Anesthesia/Blood Transfusion Reaction / Comment(s): STATES SHE WOKE UP DURING 1 SURGERY. Smoking Status: Never smoker - Past Family History Mother Family Medical History: Cancer Medications and Allergies Home Medications Medication Instructions Recorded Confirmed Type [id number]-Qfpn-Amzvl Acid 1 cap PO DAILY 06/02/22 02/03/24 History [-U Capsule (formulary)] Aspirin/Omeprazole 2 each PO DAILY 01/20/24 02/03/24 History [Aspirin-Omeprazole Dr 81-40 mg] Famotidine [Pepcid] 20 mg PO DAILY 01/20/24 01/26/24 History Labetalol [Trandate] 100 mg PO BID 01/26/24 02/03/24 History Allergies Allergy/AdvReac Type Severity Reaction Status Date / Time Latex, Natural Rubber Allergy Rash/Hives Verified 02/03/24 18:59 at contact site Penicillins Allergy Hives all Verified 02/03/24 18:59 over body Exam Intake and Output 02/03/24 02/03/24 02/03/24 06:59 14:59 22:59 Other: Weight 167.376 kg In general, this is a well-developed, morbidly obese white female in no acute distress. Her heart has a regular rhythm and rate without murmur. Her lungs are clear to auscultation bilaterally in all ortiz. Her abdomen is morbidly obese, gravid, nondistended, has normal active bowel sounds, soft, nontender, and without any palpable masses aside from the uterine fundus. Her extremities are without any cyanosis, clubbing, or significant edema and are nontender to palpation bilaterally. Digital cervical examination demonstrates her cervix to be approximately 1 cm dilated, thick, with a vertex and a very high presentation at -3-4 station. Cervidil was placed in the posterior fornix per protocol. Assessment and Plan (1) Group B streptococcal infection in Current Visit: Yes Status: Acute Code(s): O98.819 - OTH MATERNAL INFEC/PARASTC DISEASES COMP PREG, UNSP TRI; B95.1 - STREPTOCOCCUS, GROUP B, CAUSING DISEASES CLASSD ELSWHR SNOMED Code(s): 132849632 (2) induced hypertension Current Visit: Yes Status: Acute Code(s): O13.9 - GESTATIONAL HTN W/O SIGNIFICANT PROTEINURIA, UNSP TRIMESTER SNOMED Code(s): 07485541 (3) Term Current Visit: Yes Status: Acute Code(s): Z34.90 - ENCNTR FOR SUPRVSN OF NORMAL , UNSP, UNSP TRIMESTER SNOMED Code(s): 06264502 Plan: The patient is admitted for Cervidil cervical ripening with the intention of Pitocin induction/augmentation in the morning should to be necessary. Cervidil has been placed. The risks and complications have been thoroughly discussed and she has understood and agreed to proceed. She will have close maternal and surveillance and expectant management will be practiced. She is a good candidate for either IV or epidural analgesia, whichever she may choose.
[2024-02-03 21:33] LABS: Basophils % (A) 0 %; Eosinophils # (A) 0.1 k/uL (0-0.7); Eosinophils % (A) 1 %; HCT 36.4 % (34.0-46.0); HGB 11.9 gm/dL (11.4-16.0); Lymphocytes % (A) 14 %; MCH 28.2 pg (25.0-35.0); MCHC 32.8 g/dL (31.0-37.0); Mean Platelet Volume 8.6; Monocytes # (A) 0.8 k/uL (0-1.0); Monocytes % (A) 6 %; Neutrophils # (A) 11.1 k/uL (1.3-7.7); Neutrophils % (A) 78 %; Platelet Count 212 k/uL (150-450); RBC 4.23 m/uL (3.80-5.40); RDW 14.1 % (11.5-15.5); WBC 14.2 k/uL (3.8-10.6)
[2024-02-04 00:32] LABS: Amphetamine Screen,Urine Not Detected (NotDetected); Barbiturate Screen,Urine Not Detected (NotDetected); Benzodiazepines Screen,Urine Not Detected (NotDetected); Cocaine Screen,Urine Not Detected (NotDetected); Methadone Screen, Urine Not Detected (NotDetected); Opiate Screen,Urine Not Detected (NotDetected); Oxycodone Screen, Urine Not Detected (NotDetected); Phencyclidine Screen,Urine Not Detected (NotDetected); Tricyclic Antidepressant,Urine Not Detected (NotDetected); Urn Cannabinoid Scrn Detected (NotDetected)
[2024-02-04] MEDS ORDERED: TERBUTALINE 1 MG/ML VIAL SQ PRN (05:44)
[2024-02-04] MEDS ORDERED: OXYTOCIN 10 UNIT/ML 1 ML VIAL IM PRN (05:44)
[2024-02-04] MEDS ORDERED: miSOPROStoL 200 MCG TAB RECTAL PRN (05:44)
[2024-02-04] MEDS ORDERED: CARBOPROST TROMETHAMINE 250 MCG/ML 1 ML AMP IM PRN (05:44)
[2024-02-04] MEDS ORDERED: miSOPROStoL 200 MCG TAB PO PRN (05:44)
[2024-02-04] MEDS ORDERED: METHYLERGONOVINE 0.2 MG/ML 1 ML AMP IM PRN (05:44)
[2024-02-04] MEDS ORDERED: TRANEXAMIC 1,000 MG/100ML-NACL 1,000 MG in EMPTY BAG 1 BAG IV PRN (05:44)
[2024-02-04] MEDS ORDERED: LIDOCAINE 0.5% (PF) 5 MG/ML (50 ML SDV) SQ PRN (05:44)
[2024-02-04] MEDS: LACTATED RINGERS 1,000 ML IV SCH (06:28)
[2024-02-04] MEDS: LABETALOL 100 MG TAB PO STA (06:52)
[2024-02-04] MEDS: OXYTOCIN 30 UNITS/500 ML NS 30 UNIT in SALINE 1 500ML.BAG IV SCH (06:53)
--- NOTE | 2024-02-04 08:54 | P.PN ---
Subjective Progress Note Date: 02/04/24 Principal diagnosis: The 37-6/7 weeks, induction Patient reports feeling some cramping overnight and is feeling contractions this morning. No other complaints. Objective - Vital Signs Vital signs: Vital Signs Temp 96.4 F L 02/03/24 18:56 Pulse 91 02/03/24 18:56 Resp 16 02/03/24 18:56 BP 171/81 02/03/24 18:56 Pulse Ox 98 02/03/24 18:56 FiO2 Intake & Output 02/03/24 02/04/24 02/04/24 18:59 06:59 18:59 Weight 167.376 kg 167.376 kg Other: # Voids 2 1 - Exam Digital cervical examination demonstrates her cervix to be 2 cm dilated, 50% effaced, with the vertex and presentation at -2-3 station. Artificial rupture of membranes is carried out demonstrating clear fluid. - Labs CBC & Chem 7: 02/03/24 20:00 Labs: Abnormal Lab Results - Last 24 Hours (Table) 02/03/24 02/04/24 Range/Units 20:00 00:00 WBC 14.2 H (3.8-10.6) k/uL Neutrophils # 11.1 H (1.3-7.7) k/uL U Marijuana (THC) Screen Detected H (NotDetected) Assessment and Plan (1) Group B streptococcal infection in Current Visit: Yes Status: Acute Code(s): O98.819 - OTH MATERNAL INFEC/PARASTC DISEASES COMP PREG, UNSP TRI; B95.1 - STREPTOCOCCUS, GROUP B, CAUSING DISEASES CLASSD ELSWHR SNOMED Code(s): 379605347 (2) induced hypertension Current Visit: Yes Status: Acute Code(s): O13.9 - GESTATIONAL HTN W/O SIGNIFICANT PROTEINURIA, UNSP TRIMESTER SNOMED Code(s): 38236343 (3) Term Current Visit: Yes Status: Acute Code(s): Z34.90 - ENCNTR FOR SUPRVSN OF NORMAL , UNSP, UNSP TRIMESTER SNOMED Code(s): 45475798 Plan: Pitocin augmentation has been started. She will have close maternal and surveillance and expectant management will be practiced. She is a good candidate for either IV or epidural analgesia, whichever she may choose.
[2024-02-04] MEDS: LABETALOL 100 MG TAB PO SCH (19:58)
[2024-02-05] MEDS: CITRIC ACID-SODIUM CITRATE 15 ML CUP PO ONE (05:55)
[2024-02-05] MEDS ORDERED: ONDANSETRON 4 MG/2 ML VIAL IVP PRN (07:49)
[2024-02-05] MEDS ORDERED: diphenhydrAMINE 50 MG/ML 1 ML VIAL IVP PRN ×2 (07:49)
[2024-02-05] MEDS ORDERED: METOCLOPRAMIDE 5 MG/ML 2 ML VIAL IVP PRN (07:49)
[2024-02-05] MEDS ORDERED: diphenhydrAMINE 25 MG CAP PO PRN (07:49)
[2024-02-05] MEDS ORDERED: SIMETHICONE 80 MG CHEWABLE PO PRN (07:49)
[2024-02-05] MEDS ORDERED: KETOROLAC 15 MG/ML 1 ML VIAL IVP PRN (07:49)
[2024-02-05] MEDS ORDERED: ZOLPIDEM 5 MG TAB PO PRN (07:49)
[2024-02-05] MEDS ORDERED: diphenhydrAMINE 50 MG CAP PO PRN (07:49)
[2024-02-05] MEDS ORDERED: NALOXONE 0.4 MG/ML 1 ML VIAL IV PRN (07:49)
[2024-02-05] MEDS ORDERED: LANOLIN CREAM 1 GM TUBE TOPICAL PRN (07:49)
--- NOTE | 2024-02-05 07:59 | P.OP ---
Date of Procedure: 02/05/24 Preoperative Diagnosis: #1. 38-0/7 weeks, gestational hypertension #2. Arrest of dilation and descent #3. Morbid obesity Postoperative Diagnosis: Same Procedure(s) Performed: #1. Primary low-transverse section Anesthesia: epidural Surgeon: Guillermo Dent Apparatus Lineman #1: Tessa Perez Estimated Blood Loss (ml): 1,500 IV fluids (ml): 1,000 Urine output (ml): 200 Pathology: other (Placenta) Condition: stable Disposition: floor Operative Findings: Preoperatively, the patient had been undergoing induction for nearly 24 hours. She ultimately dilated to approximately 6 cm and 70% effaced with the vertex and presentation at -2 station. Despite Pitocin augmentation and an adequate contraction pattern for nearly 10 hours, no further dilation or descent was noted and the patient was counseled and agreed to undergo primary low-transverse section. She was taken to the operating room where she was delivered of a viable 6 pound 9 ounce baby girl with Apgars of 8 at 1 minute and 9 at 5 minutes. The placenta was delivered manually, intact, grossly normal with a grossly normal three-vessel cord. The uterus, tubes, and ovaries were entirely normal to inspection. The maternal abdominal wall thickness from skin to fascia was approximately 5 to 6 inches. Description of Procedure: Patient was prepped and draped in usual fashion after epidural anesthesia was bolused by the anesthesiologist. A Pfannenstiel incision was made and extended into the abdominal cavity without difficulty. The Ta self-retaining retractor was placed in standard fashion. The bladder peritoneum was elevated, incised, and reflected distally. A 2 cm incision was made in the lower uterine segment in the transverse plane to enter the uterus at which time clear fluid w as again noted. The incision was extended in both directions using the bandage scissors. The head was delivered up and through the incision where the nose and mouth were thoroughly suctioned. There was a loose nuchal cord which was reduced. The remainder of the infant was delivered onto the field where the cord was doubly clamped, cut, and the passed for resuscitative measures with weight and Apgars as noted above. The placenta was delivered manually and intact as noted above. The uterus was exteriorized and the anterior cavity of the uterus swept of any remaining placental or membranous fragments. The margins of the uterine incision were grasped with Lopez clamps and the incision closed in 2 layers. The first layer was a running locking stitch of 0 chromic catgut followed by a running imbricating layer of 0 chromic catgut locking where necessary for hemostasis. The posterior cul-de-sac was suctioned with a guard and the uterine and ovarian findings were normal as noted above. The uterus was replaced within the abdominal cavity and the gutters swept of any remaining blood, fluid, or clot. Reexamination of the uterine incision demonstrated several places primarily in the middle and right portion of the incision with ongoing bleeding which were made hemostatic with approximately 3-4 [id number] stitches of 0 chromic catgut. After ensuring that no significant ongoing bleeding was present, surgical powder was applied to the incision for hemostasis. The parietal peritoneum was loosely reapproximated and the layer of muscles examined and found to be hemostatic. The fascia was closed with 2 running stitches of 0 Vicryl proceeding from the lateral margins to the midpoint. The subcutaneous tissues were irrigated, made hemostatic with the Bovie, and reapproximated with a running stitch of 3-0 plain catgut. The skin was reapproximated with a running subcuticular stitch of 4-0 Vicryl followed by half-inch Steri-Strips placed with Mastisol. Quantitative blood loss for the case was 1500 mL. There was a moderate amount of bleeding from the uterine incision secondary to the thickness of it and difficulty in visualization and accessing the incision for repair. At removal of the drape, there was noted to be a fairly large, approximately 1+ centimeter skin tag on the patient's upper anterior right thigh which, when questioned, the patient requested to have removed. It was elevated and removed with the scissors with surgical powder applied to the wound followed by a Band-Aid. Specimen was discarded rather than sent as it was entirely benign. All sponge, instrument, and needle counts were correct. There were no complications. The patient tolerated the procedure well and proceeded to the recovery room in stable condition. Both mother and infant are resting comfortably in recovery.
[2024-02-05] MEDS ORDERED: OXYTOCIN 30 UNITS/500 ML NS 30 UNIT in SALINE 1 500ML.BAG IV SCH (08:00)
[2024-02-05] MEDS: LACTATED RINGERS 1,000 ML IV SCH (09:52)
[2024-02-05] MEDS: SENNOSIDES-DOCUSATE SODIUM 1 EACH TAB PO SCH (09:53)
[2024-02-05] MEDS: ACETAMINOPHEN TAB 500 MG TAB PO SCH (14:20)
[2024-02-05] MEDS: IBUPROFEN 600 MG TAB PO SCH (14:22)
[2024-02-05 17:07] LABS: Basophils % (A) 0 %; Eosinophils # (A) 0.1 k/uL (0-0.7); Eosinophils % (A) 1 %; HCT 34.9 % (34.0-46.0); HGB 11.3 gm/dL (11.4-16.0); Lymphocytes # (A) 1.3 k/uL (1.0-4.8); Lymphocytes % (A) 8 %; MCHC 32.3 g/dL (31.0-37.0); MCV 86.7 fL (80.0-100.0); Mean Platelet Volume 8.3; Monocytes # (A) 0.7 k/uL (0-1.0); Monocytes % (A) 4 %; Neutrophils # (A) 13.6 k/uL (1.3-7.7); Neutrophils % (A) 86 %; Platelet Count 218 k/uL (150-450); RBC 4.02 m/uL (3.80-5.40); RDW 14.2 % (11.5-15.5); WBC 15.9 k/uL (3.8-10.6)
[2024-02-06 06:07] LABS: Basophils % (A) 0 %; Eosinophils # (A) 0.2 k/uL (0-0.7); Eosinophils % (A) 1 %; HCT 28.8 % (34.0-46.0); Lymphocytes # (A) 1.6 k/uL (1.0-4.8); Lymphocytes % (A) 12 %; MCHC 33.5 g/dL (31.0-37.0); MCV 86.6 fL (80.0-100.0); Mean Platelet Volume 8.7; Monocytes # (A) 0.7 k/uL (0-1.0); Monocytes % (A) 5 %; Neutrophils # (A) 11.1 k/uL (1.3-7.7); Neutrophils % (A) 81 %; Platelet Count 163 k/uL (150-450); RBC 3.33 m/uL (3.80-5.40); RDW 14.9 % (11.5-15.5); WBC 13.7 k/uL (3.8-10.6)
[2024-02-06 06:31] LABS: HGB 9.7 gm/dL (11.4-16.0)
--- NOTE | 2024-02-06 07:20 | P.PN ---
Progress Note - Text 02/06/24 607am 23-year-old female status post , epidural dosed with Duramorph for postop pain control. Patient seen and evaluated, she has a VAS of 0 at rest with no complaints of nausea. She does have pruritus which should subside
[2024-02-06 08:23] VITALS: BP 132/83; PULSE 101; RESP 18; TEMP 97.8
--- NOTE | 2024-02-06 11:15 | P.DS ---
Providers Date of admission: 02/03/24 18:56 Expected date of discharge: 02/06/24 Attending physician: Guillermo Dent Primary care physician: Stated None - Discharge Diagnosis(es) (1) Group B streptococcal infection in Current Visit: Yes Status: Acute (2) induced hypertension Current Visit: Yes Status: Acute (3) Term Current Visit: Yes Status: Acute (4) S/P section Current Visit: Yes Status: Acute Hospital Course: The patient is a 33-year-old 2 para 0-0-1-0 who is initially admitted at 37-5/7 weeks by good dating parameters. She was admitted for Cervidil cervical ripening with subsequent Pitocin induction for diagnosis of -induced hypertension with no evidence of preeclampsia. testing had been reassuring on a weekly basis and her was otherwise uncomplicated aside from morbid obesity. On labor delivery, she had a Cervidil placed and had category 1 heart rate tracing throughout her entire labor process. The following morning she was able to have artificial rupture of membranes carried out for clear fluid. She had Pitocin augmentation all day made progress to the active phase of labor at which time an epidural catheter was placed for analgesia. She made progress to approximately 6 cm of dilation at which time she arrested dilation and descent for more than 10 hours at which time the decision was made to proceed with primary low-transverse section. She was taken to the operating room where she was delivered of a viable 6 pound 9 ounce baby girl with Apgars of 8 at 1 minute and 9 at 5 minutes. Her and postoperative course was unremarkable with vital signs remaining stable and her temperature was afebrile throughout. She was deemed stable for discharge late on day #1 and was discharged home to follow-up in the office in 2 weeks for an incision check in 6 weeks routinely. Discharge instructions included calling for any significantly increased bleeding or foul-smelling lochia, significantly increased fever or abdominal pain, perineal complaints, breast complaints, incisional complaints, or anything else that concerned her. She was additionally instructed to have nothing in the vagina for at least 6 weeks time to include intercourse and to abstain from any heavy lifting over the same period of time. She was lastly instructed to do no driving until off of all pain medications or 2 weeks time, whichever came first. She understood her instructions and agrees to follow-up as noted above. Discharge medications included continued vitamins as she has opted to breast-feed. She was otherwise to use [id number] analgesic pain medications as needed. She was provided a prescription for oxycodone 5 mg, 1-2 p.o. every 6 hours as needed pain, #20 dispensed with no refills. Maternal blood type is a positive and rubella status is immune. Discharge hemoglobin and hematocrit were 9.7 and 28.8 respectively. Procedures: #1. Cervidil cervical ripening #2. Pitocin induction #3. Artificial rupture of membranes #4. Epidural analgesia #5. Primary low-transverse section Patient Condition at Discharge: Stable Plan - Discharge Summary New Discharge Prescriptions: No Action [id number]-Jllhk Acid [-U Capsule (formulary)] 1 cap PO DAILY Famotidine [Pepcid] 20 mg PO DAILY Aspirin/Omeprazole [Aspirin-Omeprazole Dr 81-40 mg] 2 each PO DAILY Labetalol [Trandate] 100 mg PO BID Discharge Medication List [id number] Acid [-U Capsule (formulary)] 1 cap PO DAILY 06/02/22 [History] Aspirin/Omeprazole [Aspirin-Omeprazole Dr 81-40 mg] 2 each PO DAILY 01/20/24 [History] Famotidine [Pepcid] 20 mg PO DAILY 01/20/24 [History] Labetalol [Trandate] 100 mg PO BID 01/26/24 [History] Follow up Appointment(s)/Referral(s): Guillermo Dent MD [STAFF PHYSICIAN] - 03/16/24 9:15 am Discharge Disposition: HOME SELF-CARE
== END 2024-02-06 16:44 | disposition home or self-care (01) | DRG 787 ==
LOC: 4FBP 18:56
PROVIDERS: ADMIT Obstetrics & Gynecology; ATTEND Obstetrics & Gynecology
PROC: 3E0P7VZ Introduction of Hormone into Female Reproductive, Via Natural or Artificial Opening (ICD-10-PCS; 2024-02-05)
PROC: 3E033VJ Introduction of Other Hormone into Peripheral Vein, Percutaneous Approach (ICD-10-PCS; 2024-02-05)
PROC: 10907ZC Drainage of Amniotic Fluid, Therapeutic from Products of Conception, Via Natural or Artificial Opening (ICD-10-PCS; 2024-02-05)
PROC: 10D00Z1 Extraction of Products of Conception, Low, Open Approach (ICD-10-PCS; principal; 2024-02-05 06:45)
DX: O13.4 Gestational [pregnancy-induced] hypertension without significant proteinuria, complicating childbirth (principal); O98.82 Other maternal infectious and parasitic diseases complicating childbirth; O99.214 Obesity complicating childbirth; E66.01 Morbid (severe) obesity due to excess calories; O62.1 Secondary uterine inertia; O99.824 Streptococcus B carrier state complicating childbirth; B95.1 Streptococcus, group B, as the cause of diseases classified elsewhere; L29.9 Pruritus, unspecified; Z37.0 Single live birth; Z3A.37 37 weeks gestation of pregnancy; Z87.42 Personal history of other diseases of the female genital tract; Z87.59 Personal history of other complications of pregnancy, childbirth and the puerperium; Z91.040 Latex allergy status
CPT/HCPCS: 80306; 85025; 86850; 86900; 86901